=== PATIENT | male | born 1935 | race Caucasian/White ===

== ENCOUNTER → 2017-06-26 | Outpatient (CLI) | payer MEDICARE, OTHER ==
[~2017-06-26] MED LIST: B COTAB3 PO; CARB25TA PO; CARV6.25 PO; COUM5TAB PO; FISH1000 PO; NEUR600T PO; OXYC15TA PO; OXYC15TA55 PO; TAB-TAB PO; VITA20002 PO; VITA250L OR; VITA500T10 PO; WARF5TAB PO
[2017-06-26 10:49] LABS: HEMATOCRIT 41.4 % (39.0-51.0); MEAN CELL VOLUME 99.3 FL (80.0-100.0); MEAN CORPUSCULAR HEMOGLOBIN 32.9 PG (27.0-34.0); MEAN CORPUSCULAR HGB CONC 33.2 % (32.0-36.0); PLATELET COUNT 162 TH/MM3 (150-450); RED BLOOD COUNT 4.17 MIL/MM3 (4.50-5.90); RED CELL DISTRIBUTION WIDTH 13.6 % (11.6-17.2); REVIEW FLAG FINAL; WHITE BLOOD COUNT 6.4 TH/MM3 (4.0-11.0)
[2017-06-26 10:58] LABS: APTT (PATIENT) 27.7 SEC (24.3-30.1); INTERNATIONAL NORMALIZED RATIO 1.2 RATIO; PROTHROMBIN TIME - PATIENT 13.8 SEC (9.8-11.6)
[2017-06-26 11:13] LABS: BICARBONATE 32.8 MEQ/L (21.0-32.0)
--- NOTE | 2017-06-27 15:55 | EKG ---
Date Performed: 06/26/2017 Time Performed: 10:10:10 PTAGE: 82 years EKG: Atrial fibrillation with rapid ventricular response Demand pacing. Pacemaker rhythm - no fu rther analysis Abnormal ECG PREVIOUS TRACING : 02/27/2016 11.45 DOCTOR: Mckenzie Ling Interpretating Date/Time 06/27/2017 15:47:46
== END ==
LOC: CLAB 09:42
PROVIDERS: ATTEND Plastic Surgery
DX: C43.39 Malignant melanoma of other parts of face (principal); I48.91 Unspecified atrial fibrillation
CPT/HCPCS: 36415; 80051; 85027; 85610; 85730; 93005

== ENCOUNTER 2017-10-18 18:40 | Inpatient (IN) | payer MEDICARE, OTHER ==
[~2017-10-18] VITALS: Ht 180.3 cm; Wt 67.2 kg
[2017-10-18 18:55] VITALS: PULSE 112; RESP 20; TEMP 98.7; O2SAT 97
[2017-10-18 19:24] VITALS: BP 138/92; PULSE 142; RESP 16; O2SAT 98
[2017-10-18] MEDS ORDERED: DILTIAZEM HCL 25 MG/5 ML VIAL IV ONE ×2 (19:30→21:45)
--- NOTE | 2017-10-18 19:37 | PD ---
HPI Chief Complaint: Cardiac Complaint Time Seen by Provider: 19:13 Travel History International Travel<30 days: No Contact w/Intl Traveler<30days: No Traveled to known affect area: No History of Present Illness HPI 82-year-old male was referred to the emergency room department for tachycardia. Patient has history of atrial fibrillation acute bradycardia syndrome. Patient has been seen by Dr. Gonzales. Patient has a defibrillator in place. Patient is on Coumadin. Patient has routine wellness nurse visit today. Patient was found to have tachycardia. Patient was able to ED for evaluation. Patient denies any chest pain or shortness of breath. Patient denies any feeling of palpitation. Patient denies any headache. Patient denies abdominal pain. Patient denies nausea vomiting diarrhea. Patient denies any fever chills. Patient is on carvedilol 12.5 mg daily. Patient's on digoxin 0.125 mg daily. PFSH Past Medical History Hx Anticoagulant Therapy: Yes Atrial Fibrillation: Yes Heart Rhythm Problems: Yes (AFIB TACHY RUBÉN SYNDROME) Cancer: No Cardiovascular Problems: Yes High Cholesterol: Yes Coronary Artery Disease: Yes Diabetes: No Diminished Hearing: No Endocrine: No Genitourinary: No Hepatitis: No Hiatal Hernia: No Hypertension: Yes Inguinal Hernia: Yes Implanted Vascular Access Dvce: Yes Medical other: Yes (GERD) Musculoskeletal: Yes (SPINAL STENOSIS) Neurologic: Yes (RESTLESS LEG SYNDROME PERIPHERAL NEUROPATHY) Reproductive: No Respiratory: Yes (SLEEP APNEA, USES CPAP) Immunizations Current: Yes Sleep Apnea: Yes (USES CPAP) Thyroid Disease: No Tetanus Vaccination: < 5 Years PNEUMOCCOCAL Vaccine (Year): 2009 Past Surgical History Abdominal Surgery: Yes (HERNIA REPAIRS X 4) AICD: Yes Cardiac Surgery: Yes (BIOTRONIK DEFIB 03/2008, [place]) Oral Surgery: Yes (TONSILLECTOMY) Pacemaker: Yes Tonsillectomy: Yes Other Surgery: Yes Social History Alcohol Use: No Tobacco Use: No Substance Use: No Allergies-Medications (Allergen,Severity, Reaction): Coded Allergies: No Known Allergies (Verified Adverse Reaction, Unknown, 10/18/17) Reported Meds & Prescriptions Reported Meds & Active Scripts Active Reported Warfarin Sodium 5 mg (Warfarin Sodium) 5 Mg Tab 5.5 Mg PO MON,WED,FRI Vitamin D-3 (Cholecalciferol) 2 000 Tab 2,000 Unit PO DAILY Vitamin B 12 (Cyanocobalamin) 250 Mcg Laly 2,500 Mcg OR DAILY B Complex (Vitamin B Complex) Tab 1 Cap PO DAILY Fish Oil 1,000 Mg Cap 1,400 Mg PO DAILY Oxycodone (Oxycodone HCl) 15 Mg Tab 15 Mg PO PRN FOR BREAK THROUGH PAIN OxyCONTIN ER (Oxycodone HCl) 15 Mg Tab 20 Mg PO BID Neurontin (Gabapentin) 600 Mg Tab 600 Mg PO TID Coreg 6.25 mg (Carvedilol) 6.25 Mg Tab 25 Mg PO BID Coumadin 5 mg (Warfarin Sodium) 5 Mg Tab 5 Mg PO MON,MON, SAT Vitamin C (Ascorbic Acid) 500 Mg Tab 1,000 Mg PO DAILY Multivitamin (Multivitamins) 1 Tab Tab 1 Tab PO DAILY Sinemet 25/100 (Carbidopa/Levodopa) 25 Mg/100 Mg Tab 2 Tab PO TID Review of Systems General / Constitutional: No: Fever Eyes: No: Visual changes HENT: No: Headaches Cardiovascular: Positive: Palpitations, No: Chest Pain or Discomfort Respiratory: No: Shortness of Breath Gastrointestinal: No: Abdominal Pain Genitourinary: No: Dysuria Musculoskeletal: No: Pain Skin: No Rash Neurologic: No: Weakness Psychiatric: No: Depression Endocrine: No: Polydipsia Hematologic/Lymphatic: No: Easy Bruising Physical Exam Narrative GENERAL: Well-nourished, well-developed patient. SKIN: Focused skin assessment warm/dry. HEAD: Normocephalic. EYES: No scleral icterus. No injection or drainage. NECK: Supple, trachea midline. No JVD or lymphadenopathy. CARDIOVASCULAR: Irregularly irregular rate and rhythm without murmurs, gallops, or rubs. RESPIRATORY: Breath sounds equal bilaterally. No accessory muscle use. GASTROINTESTINAL: Abdomen soft, non-tender, nondistended. MUSCULOSKELETAL: No cyanosis, or edema. BACK: Nontender without obvious deformity. No CVA tenderness. Neurologic exam normal. Data Data Last Documented VS Vital Signs Date Time Temp Pulse Resp B/P (MAP) Pulse Ox O2 Delivery O2 Flow Rate FiO2 10/18/17 19:24 142 16 138/92 (107) 98 Room Air 10/18/17 18:55 98.7 Orders Orders Electrocardiogram (10/18/17 19:22) Complete Blood Count With Diff (10/18/17 19:22) Comprehensive Metabolic Panel (10/18/17 19:22) Creatine Kinase (Cpk) (10/18/17 19:22) Troponin I (10/18/17 19:22) B-Type Natriuretic Peptide (10/18/17 19:22) Prothrombin Time / Inr (Pt) (10/18/17 19:22) Act Partial Throm Time (Ptt) (10/18/17 19:22) Thyroid Stimulating Hormone (10/18/17 19:22) Chest, Single Ap (10/18/17 19:22) Iv Access Insert/Monitor (10/18/17 19:22) Ecg Monitoring (10/18/17 19:22) Oximetry (10/18/17 19:22) Diltiazem Inj (Cardizem Inj) (10/18/17 19:30) Digoxin (10/18/17 19:30) Sodium Chlor 0.9% 1000 Ml Inj (Ns 1000 M (10/18/17 19:45) Diltiazem Inj (Cardizem Inj) (10/18/17 21:45) Vital Signs (Adult) Q15MX4,Q4H (10/18/17 21:58) Hourly Shift Manager / Telemetry SHARA.Q8H (10/18/17 21:58) Cardiac Rhythm SHARA.Q8H (10/18/17 21:58) Notify Dr: Other (10/18/17 21:58) Diltiazem Inj (Cardizem Inj) (10/18/17 22:00) Labs Laboratory Tests Test 10/18/17 19:30 White Blood Count 8.3 TH/MM3 Red Blood Count 3.84 MIL/MM3 Hemoglobin 12.8 GM/DL Hematocrit 38.7 % Mean Corpuscular Volume 100.9 FL Mean Corpuscular Hemoglobin 33.3 PG Mean Corpuscular Hemoglobin Concent 33.0 % Red Cell Distribution Width 15.2 % Platelet Count 185 TH/MM3 Mean Platelet Volume 7.5 FL Neutrophils (%) (Auto) 88.8 % Lymphocytes (%) (Auto) 8.2 % Monocytes (%) (Auto) 2.8 % Eosinophils (%) (Auto) 0.1 % Basophils (%) (Auto) 0.1 % Neutrophils # (Auto) 7.4 TH/MM3 Lymphocytes # (Auto) 0.7 TH/MM3 Monocytes # (Auto) 0.2 TH/MM3 Eosinophils # (Auto) 0.0 TH/MM3 Basophils # (Auto) 0.0 TH/MM3 CBC Comment DIFF FINAL Differential Comment Prothrombin Time 58.9 SEC Prothromb Time International Ratio 5.0 RATIO Activated Partial Thromboplast Time 35.9 SEC Blood Urea Nitrogen 23 MG/DL Creatinine 0.86 MG/DL Random Glucose 123 MG/DL Total Protein 7.0 GM/DL Albumin 3.3 GM/DL Calcium Level 8.9 MG/DL Alkaline Phosphatase 60 U/L Aspartate Amino Transf (AST/SGOT) 25 U/L Alanine Aminotransferase (ALT/SGPT) 33 U/L Total Bilirubin 0.2 MG/DL Sodium Level 142 MEQ/L Potassium Level 4.4 MEQ/L Chloride Level 104 MEQ/L Carbon Dioxide Level 30.9 MEQ/L Anion Gap 7 MEQ/L Estimat Glomerular Filtration Rate 86 ML/MIN Total Creatine Kinase 71 U/L Troponin I 0.06 NG/ML B-Type Natriuretic Peptide 155 PG/ML Thyroid Stimulating Hormone 3rd Gen 0.443 uIU/ML Digoxin Level 0.9 NG/ML [facility] Medical Decision Making Medical Screen Exam Complete: Yes Emergency Medical Condition: Yes Interpretation(s) 21:31 PM. Last Impressions Chest X-Ray 10/18/171921 Signed Impressions: Service Date/Time: Wednesday, October 18, 2017 19:31 - CONCLUSION: Plain film findings characteristic of severe bilateral fibrosis, right worse than left. Gabe Harris MD 21:31 PM. CBC WBC 8.3. Hemoglobin 12.8 hematocrit 30.7. MCV 100.9. BUN 23. Troponin 0.06. INR 5.0. Dig level 0.9. Differential Diagnosis Differential diagnosis including atrial fibrillation with RVR. Narrative Course 82-year-old male with palpitation. History of atrial fibrillation. On carvedilol and digoxin. Patient is on Coumadin. EKG shows atrial fibrillation with RVR rate 140. Cardizem 10 mg IV given. Repeated Cardizem 10 mg IV. Patient still has A. fib with RVR after 20 mg IV Cardizem. Cardizem drip started. Patient will be admitted to medical service with cardiology consultation. Royce Rehman MD Oct 18, 2017 19:36
[2017-10-18] MEDS: SODIUM CHLOR 0.9% 1000 ML INJ 1,000 ML IV SCH ×2 (19:41→21:41)
[2017-10-18 19:43] LABS: AUTOMATED NEUTROPHIL # 7.4 TH/MM3 (1.8-7.7); BASOPHIL % 0.1 % (0.0-2.0); EOSINOPHIL % 0.1 % (0.0-4.0); HEMATOCRIT 38.7 % (39.0-51.0); HEMO FLAGS DIFF FINAL; LYMPH % 8.2 % (9.0-44.0); LYMPHOCYTE # 0.7 TH/MM3 (1.0-4.8); MEAN CELL VOLUME 100.9 FL (80.0-100.0); MEAN CORPUSCULAR HEMOGLOBIN 33.3 PG (27.0-34.0); MONO % 2.8 % (0.0-8.0); NEUT % 88.8 % (16.0-70.0); PLATELET COUNT 185 TH/MM3 (150-450); RED BLOOD COUNT 3.84 MIL/MM3 (4.50-5.90); RED CELL DISTRIBUTION WIDTH 15.2 % (11.6-17.2); WHITE BLOOD COUNT 8.3 TH/MM3 (4.0-11.0)
--- NOTE | 2017-10-18 19:48 | RADRPT ---
EXAM DATE/TIME: 10/18/2017 19:31 [facility] COMPARISON: No previous studies available for comparison. INDICATIONS : Elevated heart rate. MEDICAL HISTORY : Melanoma. Chronic low back pain. SURGICAL HISTORY : Pacemaker. Melanoma removal, head. ENCOUNTER: Initial ACUITY: 1 day PAIN SCORE: 0/10 LOCATION: Chest. FINDINGS: A single view of the chest demonstrates a chronic appearing fibrotic changes throughout both hemithor aces, right worse than left there is superimposed confluent infiltrate. Left subclavian bipolar pacer is radiographically intact. Osseous structures are intact. CONCLUSION: Plain film findings characteristic of severe bilateral fibrosis, right worse than left. Gabe Harris MD on October 18, 2017 at 19:45 Board Certified Radiologist. This report was verified electronically.
[2017-10-18 19:59] LABS: ALT (GPT) 33 U/L (12-78); APTT (PATIENT) 35.9 SEC (24.3-30.1); PROTHROMBIN TIME - PATIENT 58.9 SEC (9.8-11.6)
[2017-10-18 20:10] LABS: ALKALINE PHOSPHATASE 60 U/L (45-117); ANION GAP 7 MEQ/L (5-15); AST (GOT) 25 U/L (15-37); BICARBONATE 30.9 MEQ/L (21.0-32.0); BLOOD UREA NITROGEN 23 MG/DL (7-18); CHLORIDE 104 MEQ/L (98-107); CREATINE KINASE 71 U/L (39-308); GLOMERULAR FILTRATION RATE 86 ML/MIN (>89); POTASSIUM 4.4 MEQ/L (3.5-5.1); SODIUM (NA) 142 MEQ/L (136-145); TOTAL BILIRUBIN ADULT 0.2 MG/DL (0.2-1.0)
[2017-10-18] MEDS ORDERED: NALOXONE HCL 0.4 MG/ML AMP IV PUSH PRN (22:15)
[2017-10-18] MEDS ORDERED: LACTULOSE SYRUP 20 GM/30 ML CUP PO PRN (22:15)
[2017-10-18] MEDS ORDERED: NON-FORMULARY DRUG (Oxycodone 15 MG) PO SCH (22:15)
[2017-10-18] MEDS ORDERED: SODIUM CHLORIDE 0.9% FLUSH 10 ML FLUSH IV FLUSH PRN (22:15)
[2017-10-18] MEDS ORDERED: ACETAMINOPHEN 325 MG TAB PO PRN (22:15)
[2017-10-18] MEDS ORDERED: BISACODYL 10 MG SUPP RECTAL PRN (22:15)
[2017-10-18] MEDS ORDERED: MAGNESIUM HYDROXIDE SUSP 30 ML CUP PO PRN (22:15)
[2017-10-18] MEDS ORDERED: ONDANSETRON HCL 4 MG/2 ML VIAL IVP PRN (22:15)
[2017-10-18] MEDS ORDERED: ZOLPIDEM TARTRATE 5 MG TAB PO PRN (22:15)
[2017-10-18] MEDS ORDERED: SENNOSIDES 8.6 MG TAB PO PRN (22:15)
[2017-10-18 23:00] VITALS: PULSE 140
[2017-10-19] VITALS (37 sets, daily range): BP systolic 101–138; BP diastolic 58–98; PULSE 69–140; RESP 9–25; TEMP 97.8–98.7; O2SAT 93–100
[2017-10-19] MEDS: DILTIAZEM INJ 125 MG in SODIUM CHLORIDE 0.9% INJ 100 ML IV PRN ×2 (00:35→08:11)
[2017-10-19] MEDS ORDERED: CHLORHEXIDINE GLUCONATE 2 % 1 PACK (2 CLOTHS)(extra cloths) TOPICAL PRN (02:00)
[2017-10-19] MEDS: GABAPENTIN 300 MG CAP PO SCH ×4 (03:07→18:10)
[2017-10-19] MEDS: CARBIDOPA/LEVODOPA 25 MG/100 MG TAB PO SCH ×4 (03:07→18:10)
[2017-10-19] MEDS: oxyCODONE HCL 20 MG CONTROLLED RELEASE TAB PO SCH ×3 (03:40→20:29)
[2017-10-19] MEDS: CHLORHEXIDINE GLUCONATE 2 % 1 PACK (2 CLOTHS)(taper/protocol) TOPICAL SCH (04:00)
[2017-10-19 06:52] LABS: AUTOMATED NEUTROPHIL # 7.4 TH/MM3 (1.8-7.7); BASOPHIL % 0.1 % (0.0-2.0); EOSINOPHIL # 0.1 TH/MM3 (0-0.4); EOSINOPHIL % 1.5 % (0.0-4.0); HEMO FLAGS DIFF FINAL; LYMPH % 14.7 % (9.0-44.0); LYMPHOCYTE # 1.4 TH/MM3 (1.0-4.8); MEAN CELL VOLUME 100.7 FL (80.0-100.0); MEAN CORPUSCULAR HEMOGLOBIN 34.3 PG (27.0-34.0); MEAN CORPUSCULAR HGB CONC 34.1 % (32.0-36.0); MONO % 3.7 % (0.0-8.0); PLATELET COUNT 175 TH/MM3 (150-450); RED BLOOD COUNT 3.88 MIL/MM3 (4.50-5.90); RED CELL DISTRIBUTION WIDTH 15.3 % (11.6-17.2); WHITE BLOOD COUNT 9.3 TH/MM3 (4.0-11.0)
[2017-10-19 07:13] LABS: ALT (GPT) 8 U/L (12-78); ANION GAP 8 MEQ/L (5-15); AST (GOT) 22 U/L (15-37); BICARBONATE 31.3 MEQ/L (21.0-32.0); BLOOD UREA NITROGEN 20 MG/DL (7-18); CHLORIDE 103 MEQ/L (98-107); GLOMERULAR FILTRATION RATE 96 ML/MIN (>89); POTASSIUM 3.5 MEQ/L (3.5-5.1); SODIUM (NA) 142 MEQ/L (136-145)
[2017-10-19 07:19] LABS: ALKALINE PHOSPHATASE 55 U/L (45-117); TOTAL BILIRUBIN ADULT 0.7 MG/DL (0.2-1.0)
[2017-10-19] MEDS: ASCORBIC ACID 500 MG TAB PO SCH (07:32)
[2017-10-19] MEDS: CYANOCOBALAMIN 1,000 MCG TAB PO SCH (07:32)
[2017-10-19] MEDS: CARVEDILOL 12.5 MG TAB PO SCH ×2 (07:33→20:29)
[2017-10-19] MEDS: DOCUSATE SODIUM 50 MG/SENNA 8.6 MG TAB PO SCH ×2 (07:33→20:29)
[2017-10-19] MEDS: MULTIVITAMIN TAB PO SCH (07:33)
[2017-10-19] MEDS: CHOLECALCIFEROL (VIT D3) 1000 UNIT TAB PO SCH (07:33)
[2017-10-19] MEDS: SODIUM CHLORIDE 0.9% FLUSH 10 ML FLUSH IV FLUSH SCH ×2 (08:09→20:28)
[2017-10-19] MEDS: SODIUM CHLOR 0.9% 1000 ML INJ 1,000 ML IV SCH ×2 (08:11→18:11)
[2017-10-19] MEDS ORDERED: FATTY ACIDS PO SCH (09:00)
[2017-10-19] MEDS ORDERED: FOLIC ACID PO SCH (09:00)
[2017-10-19] MEDS ORDERED: B COMPLEX PO SCH (09:00)
[2017-10-19] MEDS ORDERED: OMEGA PO SCH (09:00)
--- NOTE | 2017-10-19 09:36 | MB ---
cc: LITA OLMEDO MD DATE OF CONSULTATION 10/19/2017 REASON FOR CONSULTATION Atrial fibrillation with rapid ventricular rate. HISTORY OF PRESENT ILLNESS Mr. Weir is an 82-year-old man who does have a history of atrial fibrillation and is status post multiple ablations. He has a history of cardiomyopathy which has subsequently resolved and Biotronik ICD. The patient has remained asymptomatic. He reports that home health nurse was there and did his initial vital signs which was acceptable. Prior to her departure she checked begin and found that his heart rate was quite elevated. He subsequently went to the emergency room. He remains asymptomatic and in A-fib with RVR at this time. PAST MEDICAL HISTORY Significant for - 1. Resolved nonischemic cardiomyopathy with normal LV function. 2. He did have a cardiac catheterization in 2007 that showed mild CAD. 3. CHF. 4. Sleep apnea. 5. Hypothyroidism. 6. V-tach. 7. Parkinson's. 8. Peripheral neuropathy. 9. Spinal stenosis. OUTPATIENT MEDICATIONS 1. Lanoxin and 0.125 mg a day. 2. Carvedilol 12.5 mg a day. 3. Carbidopa-levodopa. 4. Fish oil. 5. Fluconazole. 6. Gabapentin. 7. Levothyroxine. 8. Oxycodone. 9. Pantoprazole. 10. Restasis. 11. Vitamins. 12. Voltaren. 13. Coumadin. ALLERGIES No known drug allergies. SOCIAL HISTORY: The patient is a former tobacco user. FAMILY HISTORY Positive for CAD. REVIEW OF SYSTEMS Except as mentioned in the HPI, all 12 systems are negative. PHYSICAL EXAMINATION VITAL SIGNS: On physical examination the heart rate is 140. Vital signs are otherwise stable. IN GENERAL: He is a well-appearing elderly man who is in no apparent distress. NECK: Free from JVD. LUNGS: Clear to auscultation. CARDIOVASCULAR EXAMINATION: He has a normal S1 and S2. I did not appreciate any murmurs, rubs or gallops. He is tachycardiac. ABDOMEN: Soft. EXTREMITIES: The extremities have a trace amount of edema. ECHOCARDIOGRAM From July 19, 2017. Normal LV function and mild valvular abnormalities. IMPRESSIONS Atrial fibrillation - The patient does have a history of A-fib and is now in RVR. He was started on Cardizem in the emergency room with little to no improvement in the heart rate. I do agree with increasing his carvedilol to 25 mg. I asked the nurse to give that STAT this morning. We will consider adding amiodarone if this does not assist with his heart rate control. He should remain on his Coumadin. Indeterminate troponin - This is felt secondary to his A-fib/RVR. Trenton Eduardo/DREW /8:52 AM /9:10 AM
--- NOTE | 2017-10-19 11:36 | HHI.HP ---
History of Present Illness Service Family medicine Primary Care Physician Navarro Jewell, DO Admission Diagnosis A. fib with RVR Diagnoses: (1) GERD (gastroesophageal reflux disease) (2) HTN (hypertension) (3) Hyperlipidemia (4) Afib History of Present Illness Patient is a 82-year-old male was referred to the emergency room department for tachycardia found by home health nurse. Mr. Weir has a history of atrial fibrillation and is status post multiple ablations. He has a history of cardiomyopathy which has subsequently resolved and Biotronik ICD. Has past medical history of HTN, sleep apnea, parkinsons, GERD, and HLD Review of Systems Constitutional: DENIES: Fatigue, Fever, Chills, Dizziness, Change in appetite Respiratory: DENIES: Wheezing, Sputum production, Shortness of breath Cardiovascular: COMPLAINS OF: Palpitations, DENIES: Chest pain, Syncope, Lower Extremity Edema Gastrointestinal: DENIES: Constipation, Diarrhea, Nausea, Vomiting Psychiatric: DENIES: Anxiety, Depression Past Family Social History Allergies: Coded Allergies: No Known Allergies (Verified Allergy, Unknown, 10/18/17) Past Medical History PAST MEDICAL HISTORY Significant for - 1. Resolved nonischemic cardiomyopathy with normal LV function. 2. He did have a cardiac catheterization in 2007 that showed mild CAD. 3. CHF. 4. Sleep apnea. 5. Hypothyroidism. 6. V-tach. 7. Parkinson's. 8. Peripheral neuropathy. 9. Spinal stenosis. Past Surgical History Hernia repair X 4 AICD Tonsillectomy Active Ordered Medications Current Medications Medications (Trade) Dose Ordered Sig/Mendoza Route Start Time Stop Time Status Last Admin Diltiazem HCl 125 mg/Sodium Chloride 125 ml @ 5 mls/hr TITRATE PRN IV 10/18/17 22:00 10/19/17 08:11 Sodium Chloride 1,000 ml @ 100 mls/hr Q10H IV 10/18/17 22:11 10/19/17 08:11 (NS Flush) 2 ml UNSCH PRN IV FLUSH 10/18/17 22:15 (NS Flush) 2 ml BID IV FLUSH 10/19/17 09:00 (Tylenol) 650 mg Q4H PRN PO 10/18/17 22:15 (Zofran Inj) 4 mg Q6H PRN IVP 10/18/17 22:15 (Ambien) 5 mg HS PRN PO 10/18/17 22:15 (Narcan Inj) 0.4 mg UNSCH PRN IV PUSH 10/18/17 22:15 (Bridget-Colace) 1 tab BID PO 10/19/17 09:00 10/19/17 07:33 (Milk Of Magnesia Liq) 30 ml Q12H PRN PO 10/18/17 22:15 (Senokot) 17.2 mg Q12H PRN PO 10/18/17 22:15 (Dulcolax Supp) 10 mg DAILY PRN RECTAL 10/18/17 22:15 (Lactulose Liq) 30 ml DAILY PRN PO 10/18/17 22:15 (Vitamin C) 1,000 mg DAILY PO 10/19/17 09:00 10/19/17 07:32 (Sinemet 25-100 Mg) 2 tab TID PO 10/19/17 02:49 10/19/17 07:33 (Coreg) 25 mg BID PO 10/19/17 09:00 10/19/17 07:33 (Theragran) 1 tab DAILY PO 10/19/17 09:00 10/19/17 07:33 (Vitamin D3) 2,000 units DAILY PO 10/19/17 09:00 10/19/17 07:33 (Vitamin B12) 2,500 mcg DAILY PO 10/19/17 09:00 10/19/17 07:32 (Neurontin) 600 mg TID PO 10/19/17 02:49 10/19/17 08:09 (OxyCONTIN CR) 20 mg BID PO 10/19/17 03:00 10/19/17 07:33 Miscellaneous Information Patient in critical care unit? Ass... [id number] .XX 10/19/17 02:00 10/19/17 02:00 (Chlorhexidine 2% Cloth) 3 pack DAILY@04 TOPICAL 10/19/17 04:00 10/23/17 04:01 10/19/17 04:00 (Chlorhexidine 2% Cloth) 3 pack UNSCH PRN TOPICAL 10/19/17 02:00 10/24/17 01:52 Social History Quit smoking 1972 Infrequent ETOH use Lives alone- in January Physical Exam Vital Signs Vital Signs Date Time Temp Pulse Resp B/P (MAP) Pulse Ox O2 Delivery O2 Flow Rate FiO2 10/19/17 08:11 140 10/19/17 07:00 97.8 128 18 101/63 (76) 94 10/19/17 07:00 128 10/19/17 06:00 122 10/19/17 06:00 122 110/79 10/19/17 04:00 100 10/19/17 03:00 98.7 125 13 130/88 (102) 95 10/19/17 02:00 120 10/19/17 02:00 122 140/86 10/19/17 01:58 97.9 120 20 137/98 (111) 94 10/19/17 00:50 140 16 125/93 (104) 100 Room Air 10/19/17 00:35 144 116/72 10/18/17 23:00 140 10/18/17 22:33 10/18/17 19:24 142 16 138/92 (107) 98 Room Air 10/18/17 18:55 98.7 112 20 97 Physical Exam GENERAL: Well-nourished, well-developed patient. SKIN: Focused skin assessment warm/dry. HEAD: Normocephalic. EYES: No scleral icterus. No injection or drainage. NECK: Supple, trachea midline. No JVD or lymphadenopathy. CARDIOVASCULAR: Irregularly irregular rate and rhythm without murmurs, gallops, or rubs. RESPIRATORY: Breath sounds equal bilaterally. No accessory muscle use. GASTROINTESTINAL: Abdomen soft, non-tender, nondistended. MUSCULOSKELETAL: No cyanosis, or edema. BACK: Nontender without obvious deformity. No CVA tenderness. Neurologic exam normal. Laboratory Laboratory Tests Test 10/18/17 19:30 10/19/17 02:00 10/19/17 05:12 White Blood Count 8.3 9.3 Red Blood Count 3.84 3.88 Hemoglobin 12.8 13.3 Hematocrit 38.7 39.0 Mean Corpuscular Volume 100.9 100.7 Mean Corpuscular Hemoglobin 33.3 34.3 Mean Corpuscular Hemoglobin Concent 33.0 34.1 Red Cell Distribution Width 15.2 15.3 Platelet Count 185 175 Mean Platelet Volume 7.5 7.9 Neutrophils (%) (Auto) 88.8 80.0 Lymphocytes (%) (Auto) 8.2 14.7 Monocytes (%) (Auto) 2.8 3.7 Eosinophils (%) (Auto) 0.1 1.5 Basophils (%) (Auto) 0.1 0.1 Neutrophils # (Auto) 7.4 7.4 Lymphocytes # (Auto) 0.7 1.4 Monocytes # (Auto) 0.2 0.3 Eosinophils # (Auto) 0.0 0.1 Basophils # (Auto) 0.0 0.0 CBC Comment DIFF FINAL DIFF FINAL Differential Comment Prothrombin Time 58.9 Prothromb Time International Ratio 5.0 Activated Partial Thromboplast Time 35.9 Blood Urea Nitrogen 23 20 Creatinine 0.86 0.78 Random Glucose 123 86 Total Protein 7.0 6.7 Albumin 3.3 3.2 Calcium Level 8.9 8.8 Alkaline Phosphatase 60 55 Aspartate Amino Transf (AST/SGOT) 25 22 Alanine Aminotransferase (ALT/SGPT) 33 8 Total Bilirubin 0.2 0.7 Sodium Level 142 142 Potassium Level 4.4 3.5 Chloride Level 104 103 Carbon Dioxide Level 30.9 31.3 Anion Gap 7 8 Estimat Glomerular Filtration Rate 86 96 Total Creatine Kinase 71 Troponin I 0.06 B-Type Natriuretic Peptide 155 Thyroid Stimulating Hormone 3rd Gen 0.443 Digoxin Level 0.9 Nasal Screen MRSA (PCR) MRSA NOT DETECTED Result Diagram: 10/19/1751110/19/17511 Imaging Last 72 hours Impressions Chest X-Ray 10/18/171921 Signed Impressions: Service Date/Time: Monday, October 18, 2017 19:31 - CONCLUSION: Plain film findings characteristic of severe bilateral fibrosis, right worse than left. MD Kaatlina Jackson VTE Risk Assessment Javedrini VTE Risk Assessment: Mod/High Risk (score >= 2) Caprini Risk Assessment Model Point Value = 1 Point Value = 2 Point Value = 3 Point Value = 5 Age 41-60 Minor surgery BMI > 25 kg/m2 Swollen legs Varicose veins or History of unexplained or recurrent spontaneous Oral contraceptives or hormone replacement Sepsis (< 1 month) Serious lung disease, including pneumonia (< 1 month) Abnormal pulmonary function Acute myocardial infarction Congestive heart failure (< 1 month) History of inflammatory bowel disease Medical patient at bed rest Age 61-74 Arthroscopic surgery Major open surgery (> 45 min) Laparoscopic surgery (> 45 min) Malignancy Confined to bed (> 72 hours) Immobilizing plaster cast Central venous access Age >= 75 History of VTE Family history of VTE Factor V Leiden Prothrombin [id number] Lupus anticoagulant Anticardiolipin antibodies Elevated serum homocysteine Heparin-induced thrombocytopenia Other congenital or acquired thrombophilia Stroke (< 1 month) Elective arthroplasty Hip, pelvis, or leg fracture Acute spinal cord injury (< 1 month) Prophylaxis Regimen Total Risk Factor Score Risk Level Prophylaxis Regimen 0-1 Low Early ambulation 2 Moderate Order ONE of the following: *Sequential Compression Device (SCD) *Heparin 5000 units SQ BID 3-4 Higher Order ONE of the following medications: *Heparin 5000 units SQ TID *Enoxaparin/Lovenox 40 mg SQ daily (WT < 150 kg, CrCl > 30 mL/min) *Enoxaparin/Lovenox 30 mg SQ daily (WT < 150 kg, CrCl > 10-29 mL/min) *Enoxaparin/Lovenox 30 mg SQ BID (WT < 150 kg, CrCl > 30 mL/min) AND/OR *Sequential Compression Device (SCD) 5 or more Highest Order ONE of the following medications: *Heparin 5000 units SQ TID (Preferred with Epidurals) *Enoxaparin/Lovenox 40 mg SQ daily (WT < 150 kg, CrCl > 30 mL/min) *Enoxaparin/Lovenox 30 mg SQ daily (WT < 150 kg, CrCl > 10-29 mL/min) *Enoxaparin/Lovenox 30 mg SQ BID (WT < 150 kg, CrCl > 30 mL/min) AND *Sequential Compression Device (SCD) Assessment and Plan Problem List: (1) Atrial fibrillation with RVR ICD Codes: I48.91 - Unspecified atrial fibrillation (2) Hyperlipidemia ICD Codes: E78.5 - Hyperlipidemia, unspecified (3) GERD (gastroesophageal reflux disease) ICD Codes: K21.9 - Gastro-esophageal reflux disease without esophagitis (4) HTN (hypertension) ICD Codes: I10 - Essential (primary) hypertension Assessment and Plan 10/19/17 AFIB RVR: Cardiology consulted. On diltiazem drip. HR in the 120- 130's patient is resting comfortable. On warfarin but is on hold with INR of 5, Will order INR for AM. Urinary retention: Patient unable to void. Bladder is distended. Order for leigh placement and flomax added. Parkinson; Home medication resumed GERD: Asymptomatic continue PPI I and the MEDICAL BILLER CODER have both examined this patient and reviewed this note and I agree with these findings and plan of care. Tiarra Yan. MEDICAL BILLER CODER Oct 19, 2017 11:36
--- NOTE | 2017-10-19 16:28 | EKG ---
Date Performed: 10/18/2017 Time Performed: 18:56:07 PTAGE: 82 years EKG: SINUS TACHYCARDIA WITH SHORT ID INTERVAL WITH OCCASIONAL VENTRICULAR PREMATURE COMPLEXES WI TH FREQUENT SUPRAVENTRICULAR PREMATURE COMPLEXES RIGHT BUNDLE BRANCH BLOCK LEFT ANTERIOR FASCICULAR B LOCK POSSIBLE ANTERIOR MYOCARDIAL INFARCTION When compared to previous tracing, patient continues wit h atrial Fibrillation. Right bundle branch block continues. ABNORMAL ECG PREVIOUS TRACING : 06/26/2017 10.10 DOCTOR: Ashia Soto Interpretating Date/Time 10/19/2017 16:28:40
[2017-10-20] VITALS (21 sets, daily range): BP systolic 96–154; BP diastolic 57–104; PULSE 69–127; RESP 11–34; TEMP 97.3–98.3; O2SAT 92–99
[2017-10-20] MEDS ORDERED: DILTIAZEM HCL 30 MG TAB PO ONE (03:55)
[2017-10-20] MEDS: CHLORHEXIDINE GLUCONATE 2 % 1 PACK (2 CLOTHS)(taper/protocol) TOPICAL SCH (04:00)
[2017-10-20 06:03] LABS: AUTOMATED NEUTROPHIL # 6.3 TH/MM3 (1.8-7.7); BASOPHIL % 0.4 % (0.0-2.0); EOSINOPHIL # 0.2 TH/MM3 (0-0.4); EOSINOPHIL % 2.6 % (0.0-4.0); HEMATOCRIT 39.2 % (39.0-51.0); HEMO FLAGS DIFF FINAL; LYMPH % 11.1 % (9.0-44.0); LYMPHOCYTE # 0.9 TH/MM3 (1.0-4.8); MEAN CELL VOLUME 99.8 FL (80.0-100.0); MEAN CORPUSCULAR HEMOGLOBIN 33.3 PG (27.0-34.0); MEAN CORPUSCULAR HGB CONC 33.4 % (32.0-36.0); MONO % 4.4 % (0.0-8.0); NEUT % 81.5 % (16.0-70.0); PLATELET COUNT 159 TH/MM3 (150-450); RED BLOOD COUNT 3.93 MIL/MM3 (4.50-5.90); RED CELL DISTRIBUTION WIDTH 14.7 % (11.6-17.2); WHITE BLOOD COUNT 7.7 TH/MM3 (4.0-11.0)
[2017-10-20 06:06] LABS: INTERNATIONAL NORMALIZED RATIO 2.1 RATIO; PROTHROMBIN TIME - PATIENT 21.5 SEC (9.8-11.6)
[2017-10-20 06:17] LABS: BICARBONATE 30.8 MEQ/L (21.0-32.0); POTASSIUM 3.8 MEQ/L (3.5-5.1)
--- NOTE | 2017-10-20 08:23 | HHI.PR ---
Subjective Remarks Resting comfortably denies any SOB or CP. Heart rate elevated last night Objective Vital Signs Date Time Temp Pulse Resp B/P (MAP) Pulse Ox O2 Delivery O2 Flow Rate FiO2 10/20/17 07:00 98.3 117 14 114/57 (76) 99 10/20/17 06:00 96 10/20/17 04:00 125 10/20/17 03:00 98.2 123 24 154/104 (121) 93 10/20/17 02:00 116 10/20/17 00:00 114 10/19/17 23:00 98.4 116 9 138/65 (89) 95 10/19/17 22:00 119 10/19/17 20:00 102 10/19/17 19:00 98.2 71 11 114/64 (81) 94 10/19/17 18:45 77 10/19/17 18:30 81 10/19/17 18:15 94 10/19/17 18:00 70 10/19/17 18:00 70 10 114/66 (82) 94 10/19/17 17:45 72 10/19/17 17:30 69 10/19/17 17:15 69 10/19/17 17:00 80 11 119/63 (81) 94 10/19/17 17:00 80 10/19/17 16:45 77 10/19/17 16:30 75 10/19/17 16:15 76 10/19/17 16:00 70 10/19/17 16:00 70 24 117/67 (84) 96 10/19/17 15:45 91 10/19/17 15:30 116 10/19/17 15:15 120 10/19/17 15:00 92 10/19/17 15:00 92 11 114/65 (81) 93 10/19/17 14:45 100 10/19/17 14:30 69 10/19/17 14:15 69 10/19/17 14:00 69 10/19/17 14:00 69 22 118/58 (78) 95 10/19/17 13:00 69 25 101/63 (76) 94 10/19/17 13:00 69 10/19/17 12:00 69 14 104/67 (79) 97 10/19/17 12:00 69 10/19/17 11:00 69 10/19/17 10:00 69 10/19/17 09:00 69 I/O 10/19/17 10/19/17 10/19/17 10/20/17 10/20/17 10/20/17 07:00 15:00 23:00 07:00 15:00 23:00 Intake Total 740 ml 300 ml Output Total 340 ml 1300 ml 2100 ml Balance -340 ml -560 ml -1800 ml Intake Oral 740 ml 300 ml Output Urine Total 340 ml 1300 ml 2100 ml # Voids 1 # Bowel Movements 0 0 Result Diagram: 10/20/1721 10/20/17520 Imaging Current Medications Medications (Trade) Dose Ordered Sig/Mendoza Route Start Time Stop Time Status Last Admin Diltiazem HCl 125 mg/Sodium Chloride 125 ml @ 5 mls/hr TITRATE PRN IV 10/18/17 22:00 10/19/17 08:11 (NS Flush) 2 ml UNSCH PRN IV FLUSH 10/18/17 22:15 (NS Flush) 2 ml BID IV FLUSH 10/19/17 09:00 10/19/17 20:28 (Tylenol) 650 mg Q4H PRN PO 10/18/17 22:15 (Zofran Inj) 4 mg Q6H PRN IVP 10/18/17 22:15 (Ambien) 5 mg HS PRN PO 10/18/17 22:15 (Narcan Inj) 0.4 mg UNSCH PRN IV PUSH 10/18/17 22:15 (Bridget-Colace) 1 tab BID PO 10/19/17 09:00 10/19/17 20:29 (Milk Of Magnesia Liq) 30 ml Q12H PRN PO 10/18/17 22:15 (Senokot) 17.2 mg Q12H PRN PO 10/18/17 22:15 (Dulcolax Supp) 10 mg DAILY PRN RECTAL 10/18/17 22:15 (Lactulose Liq) 30 ml DAILY PRN PO 10/18/17 22:15 (Vitamin C) 1,000 mg DAILY PO 10/19/17 09:00 10/19/17 07:32 (Sinemet 25-100 Mg) 2 tab TID PO 10/19/17 02:49 10/19/17 18:10 (Coreg) 25 mg BID PO 10/19/17 09:00 10/19/17 20:29 (Theragran) 1 tab DAILY PO 10/19/17 09:00 10/19/17 07:33 (Vitamin D3) 2,000 units DAILY PO 10/19/17 09:00 10/19/17 07:33 (Vitamin B12) 2,500 mcg DAILY PO 10/19/17 09:00 10/19/17 07:32 (Neurontin) 600 mg TID PO 10/19/17 02:49 10/19/17 18:10 (OxyCONTIN CR) 20 mg BID PO 10/19/17 03:00 10/19/17 20:29 Miscellaneous Information Patient in critical care unit? Ass... Q361D .XX 10/19/17 02:00 10/19/17 02:00 (Chlorhexidine 2% Cloth) 3 pack DAILY@04 TOPICAL 10/19/17 04:00 10/23/17 04:01 10/20/17 04:00 (Chlorhexidine 2% Cloth) 3 pack UNSCH PRN TOPICAL 10/19/17 02:00 10/24/17 01:52 (Cardizem) 30 mg TID PO 10/20/17 09:00 (Flomax) 0.4 mg DAILY PO 10/20/17 09:00 Objective Remarks GENERAL: alert and cooperative SKIN: Warm and dry. HEAD: Normocephalic. EYES: No scleral icterus. No injection or drainage. NECK: Supple, trachea midline. No JVD or lymphadenopathy. CARDIOVASCULAR: Regular rate and rhythm without murmurs, gallops, or rubs. RESPIRATORY: Breath sounds equal bilaterally. No accessory muscle use. GASTROINTESTINAL: Abdomen soft, non-tender, nondistended. MUSCULOSKELETAL: No cyanosis, or edema. BACK: Nontender without obvious deformity. No CVA tenderness. Medications and IVs Current Medications Medications (Trade) Dose Ordered Sig/Mendoza Route Start Time Stop Time Status Last Admin Diltiazem HCl 125 mg/Sodium Chloride 125 ml @ 5 mls/hr TITRATE PRN IV 10/18/17 22:00 10/19/17 08:11 (NS Flush) 2 ml UNSCH PRN IV FLUSH 10/18/17 22:15 (NS Flush) 2 ml BID IV FLUSH 10/19/17 09:00 10/19/17 20:28 (Tylenol) 650 mg Q4H PRN PO 10/18/17 22:15 (Zofran Inj) 4 mg Q6H PRN IVP 10/18/17 22:15 (Ambien) 5 mg HS PRN PO 10/18/17 22:15 (Narcan Inj) 0.4 mg UNSCH PRN IV PUSH 10/18/17 22:15 (Bridget-Colace) 1 tab BID PO 10/19/17 09:00 10/19/17 20:29 (Milk Of Magnesia Liq) 30 ml Q12H PRN PO 10/18/17 22:15 (Senokot) 17.2 mg Q12H PRN PO 10/18/17 22:15 (Dulcolax Supp) 10 mg DAILY PRN RECTAL 10/18/17 22:15 (Lactulose Liq) 30 ml DAILY PRN PO 10/18/17 22:15 (Vitamin C) 1,000 mg DAILY PO 10/19/17 09:00 10/19/17 07:32 (Sinemet 25-100 Mg) 2 tab TID PO 10/19/17 02:49 10/19/17 18:10 (Coreg) 25 mg BID PO 10/19/17 09:00 10/19/17 20:29 (Theragran) 1 tab DAILY PO 10/19/17 09:00 10/19/17 07:33 (Vitamin D3) 2,000 units DAILY PO 10/19/17 09:00 10/19/17 07:33 (Vitamin B12) 2,500 mcg DAILY PO 10/19/17 09:00 10/19/17 07:32 (Neurontin) 600 mg TID PO 10/19/17 02:49 10/19/17 18:10 (OxyCONTIN CR) 20 mg BID PO 10/19/17 03:00 10/19/17 20:29 Miscellaneous Information Patient in critical care unit? Ass... Q361D .XX 10/19/17 02:00 10/19/17 02:00 (Chlorhexidine 2% Cloth) 3 pack DAILY@04 TOPICAL 10/19/17 04:00 10/23/17 04:01 10/20/17 04:00 (Chlorhexidine 2% Cloth) 3 pack UNSCH PRN TOPICAL 10/19/17 02:00 10/24/17 01:52 (Cardizem) 30 mg TID PO 10/20/17 09:00 (Flomax) 0.4 mg DAILY PO 10/20/17 09:00 Assessment and Plan Problem List: (1) Atrial fibrillation with RVR ICD Codes: I48.91 - Unspecified atrial fibrillation (2) Hyperlipidemia ICD Codes: E78.5 - Hyperlipidemia, unspecified (3) GERD (gastroesophageal reflux disease) ICD Codes: K21.9 - Gastro-esophageal reflux disease without esophagitis (4) HTN (hypertension) ICD Codes: I10 - Essential (primary) hypertension Assessment and Plan 10/19/17 AFIB RVR: Cardiology consulted. On diltiazem drip. HR in the 120- 130's patient is resting comfortable. On warfarin but is on hold with INR of 5, Will order INR for AM. Urinary retention: Patient unable to void. Bladder is distended. Order for leigh placement and flomax added. Parkinson; Home medication resumed GERD: Asymptomatic continue PPI 10/20/17 AFIB RVR: Cardiology consulted and managing. HR was well controlled during the day yesterday but last night elevated. diltiazem drip is off and oral has been started. INR 2.1 today. Warfarin resumed Urinary retention: Plan to remove in AM. flomax started. I and the FIELD SERVICE COORDINATOR have both examined this patient and reviewed this note and I agree with these findings and plan of care. Navarro Jewell DO Discussed Condition With Nursing Discharge Planning Home with [facility] Tiarra Marin Oct 20, 2017 08:23
[2017-10-20] MEDS: GABAPENTIN 300 MG CAP PO SCH ×3 (08:43→17:46)
[2017-10-20] MEDS: DOCUSATE SODIUM 50 MG/SENNA 8.6 MG TAB PO SCH ×2 (08:43→20:12)
[2017-10-20] MEDS: DILTIAZEM HCL 30 MG TAB PO SCH ×4 (08:44→23:40)
[2017-10-20] MEDS: CYANOCOBALAMIN 1,000 MCG TAB PO SCH (08:44)
[2017-10-20] MEDS: CARBIDOPA/LEVODOPA 25 MG/100 MG TAB PO SCH ×3 (08:44→17:46)
[2017-10-20] MEDS: oxyCODONE HCL 20 MG CONTROLLED RELEASE TAB PO SCH ×2 (08:44→20:12)
[2017-10-20] MEDS: CHOLECALCIFEROL (VIT D3) 1000 UNIT TAB PO SCH (08:44)
[2017-10-20] MEDS: MULTIVITAMIN TAB PO SCH (08:44)
[2017-10-20] MEDS: CARVEDILOL 12.5 MG TAB PO SCH ×2 (08:44→20:12)
[2017-10-20] MEDS: ASCORBIC ACID 500 MG TAB PO SCH (08:45)
[2017-10-20] MEDS: TAMSULOSIN HCL 0.4 MG CAP PO SCH (08:45)
[2017-10-20] MEDS: SODIUM CHLORIDE 0.9% FLUSH 10 ML FLUSH IV FLUSH SCH ×2 (08:48→20:13)
--- NOTE | 2017-10-20 14:46 | PD.CARD.PN ---
Subjective Subjective Remarks PT without complaints Objective Medications Current Medications Medications (Trade) Dose Ordered Sig/Mendoza Route Start Time Stop Time Status Last Admin Diltiazem HCl 125 mg/Sodium Chloride 125 ml @ 5 mls/hr TITRATE PRN IV 10/18/17 22:00 10/19/17 08:11 (NS Flush) 2 ml UNSCH PRN IV FLUSH 10/18/17 22:15 (NS Flush) 2 ml BID IV FLUSH 10/19/17 09:00 10/20/17 08:48 (Tylenol) 650 mg Q4H PRN PO 10/18/17 22:15 (Zofran Inj) 4 mg Q6H PRN IVP 10/18/17 22:15 (Ambien) 5 mg HS PRN PO 10/18/17 22:15 (Narcan Inj) 0.4 mg UNSCH PRN IV PUSH 10/18/17 22:15 (Bridget-Colace) 1 tab BID PO 10/19/17 09:00 10/20/17 08:43 (Milk Of Magnesia Liq) 30 ml Q12H PRN PO 10/18/17 22:15 (Senokot) 17.2 mg Q12H PRN PO 10/18/17 22:15 (Dulcolax Supp) 10 mg DAILY PRN RECTAL 10/18/17 22:15 (Lactulose Liq) 30 ml DAILY PRN PO 10/18/17 22:15 (Vitamin C) 1,000 mg DAILY PO 10/19/17 09:00 10/20/17 08:45 (Sinemet 25-100 Mg) 2 tab TID PO 10/19/17 02:49 10/20/17 12:36 (Coreg) 25 mg BID PO 10/19/17 09:00 10/20/17 08:44 (Theragran) 1 tab DAILY PO 10/19/17 09:00 10/20/17 08:44 (Vitamin D3) 2,000 units DAILY PO 10/19/17 09:00 10/20/17 08:44 (Vitamin B12) 2,500 mcg DAILY PO 10/19/17 09:00 10/20/17 08:44 (Neurontin) 600 mg TID PO 10/19/17 02:49 10/20/17 12:36 (OxyCONTIN CR) 20 mg BID PO 10/19/17 03:00 10/20/17 08:44 Miscellaneous Information Patient in critical care unit? Ass... Q361D .XX 10/19/17 02:00 10/19/17 02:00 (Chlorhexidine 2% Cloth) 3 pack DAILY@04 TOPICAL 10/19/17 04:00 10/23/17 04:01 10/20/17 04:00 (Chlorhexidine 2% Cloth) 3 pack UNSCH PRN TOPICAL 10/19/17 02:00 10/24/17 01:52 (Cardizem) 30 mg TID PO 10/20/17 09:00 10/20/17 12:36 (Flomax) 0.4 mg DAILY PO 10/20/17 09:00 10/20/17 08:45 (Coumadin) 5 mg DAILY@1600 PO 10/20/17 16:00 Vital Signs / I&O Vital Signs Date Time Temp Pulse Resp B/P (MAP) Pulse Ox O2 Delivery O2 Flow Rate FiO2 10/20/17 12:45 119 34 92 10/20/17 12:30 118 33 93 10/20/17 12:15 118 28 95 10/20/17 12:00 111 10/20/17 12:00 111 29 106/62 (77) 94 10/20/17 11:45 107 12 94 10/20/17 11:30 110 11 92 10/20/17 11:15 113 15 96 10/20/17 11:00 113 14 98/72 (81) 95 10/20/17 11:00 113 10/20/17 10:00 95 10/20/17 09:00 127 10/20/17 08:00 116 10/20/17 07:00 98.3 117 14 114/57 (76) 99 10/20/17 06:00 96 10/20/17 04:00 125 10/20/17 03:00 98.2 123 24 154/104 (121) 93 10/20/17 02:00 116 10/20/17 00:00 114 10/19/17 23:00 98.4 116 9 138/65 (89) 95 10/19/17 22:00 119 10/19/17 20:00 102 10/19/17 19:00 98.2 71 11 114/64 (81) 94 10/19/17 18:45 77 10/19/17 18:30 81 10/19/17 18:15 94 10/19/17 18:00 70 10/19/17 18:00 70 10 114/66 (82) 94 10/19/17 17:45 72 10/19/17 17:30 69 10/19/17 17:15 69 10/19/17 17:00 80 11 119/63 (81) 94 10/19/17 17:00 80 10/19/17 16:45 77 10/19/17 16:30 75 10/19/17 16:15 76 10/19/17 16:00 70 10/19/17 16:00 70 24 117/67 (84) 96 10/19/17 15:45 91 10/19/17 15:30 116 10/19/17 15:15 120 10/19/17 15:00 92 10/19/17 15:00 92 11 114/65 (81) 93 I/O 10/19/17 10/19/17 10/19/17 10/20/17 10/20/17 10/20/17 07:00 15:00 23:00 07:00 15:00 23:00 Intake Total 740 ml 300 ml Output Total 340 ml 1300 ml 2100 ml Balance -340 ml -560 ml -1800 ml Intake Oral 740 ml 300 ml Output Urine Total 340 ml 1300 ml 2100 ml # Voids 1 # Bowel Movements 0 0 Physical Exam Current Medications Medications (Trade) Dose Ordered Sig/Mendoza Route Start Time Stop Time Status Last Admin Diltiazem HCl 125 mg/Sodium Chloride 125 ml @ 5 mls/hr TITRATE PRN IV 10/18/17 22:00 10/19/17 08:11 (NS Flush) 2 ml UNSCH PRN IV FLUSH 10/18/17 22:15 (NS Flush) 2 ml BID IV FLUSH 10/19/17 09:00 10/20/17 08:48 (Tylenol) 650 mg Q4H PRN PO 10/18/17 22:15 (Zofran Inj) 4 mg Q6H PRN IVP 10/18/17 22:15 (Ambien) 5 mg HS PRN PO 10/18/17 22:15 (Narcan Inj) 0.4 mg UNSCH PRN IV PUSH 10/18/17 22:15 (Bridget-Colace) 1 tab BID PO 10/19/17 09:00 10/20/17 08:43 (Milk Of Magnesia Liq) 30 ml Q12H PRN PO 10/18/17 22:15 (Senokot) 17.2 mg Q12H PRN PO 10/18/17 22:15 (Dulcolax Supp) 10 mg DAILY PRN RECTAL 10/18/17 22:15 (Lactulose Liq) 30 ml DAILY PRN PO 10/18/17 22:15 (Vitamin C) 1,000 mg DAILY PO 10/19/17 09:00 10/20/17 08:45 (Sinemet 25-100 Mg) 2 tab TID PO 10/19/17 02:49 10/20/17 12:36 (Coreg) 25 mg BID PO 10/19/17 09:00 10/20/17 08:44 (Theragran) 1 tab DAILY PO 10/19/17 09:00 10/20/17 08:44 (Vitamin D3) 2,000 units DAILY PO 10/19/17 09:00 10/20/17 08:44 (Vitamin B12) 2,500 mcg DAILY PO 10/19/17 09:00 10/20/17 08:44 (Neurontin) 600 mg TID PO 10/19/17 02:49 10/20/17 12:36 (OxyCONTIN CR) 20 mg BID PO 10/19/17 03:00 10/20/17 08:44 Miscellaneous Information Patient in critical care unit? Ass... Q361D .XX 10/19/17 02:00 10/19/17 02:00 (Chlorhexidine 2% Cloth) 3 pack DAILY@04 TOPICAL 10/19/17 04:00 10/23/17 04:01 10/20/17 04:00 (Chlorhexidine 2% Cloth) 3 pack UNSCH PRN TOPICAL 10/19/17 02:00 10/24/17 01:52 (Cardizem) 30 mg TID PO 10/20/17 09:00 10/20/17 12:36 (Flomax) 0.4 mg DAILY PO 10/20/17 09:00 10/20/17 08:45 (Coumadin) 5 mg DAILY@1600 PO 10/20/17 16:00 Laboratory Laboratory Tests Test 10/20/17 05:21 White Blood Count 7.7 TH/MM3 Red Blood Count 3.93 MIL/MM3 Hemoglobin 13.1 GM/DL Hematocrit 39.2 % Mean Corpuscular Volume 99.8 FL Mean Corpuscular Hemoglobin 33.3 PG Mean Corpuscular Hemoglobin Concent 33.4 % Red Cell Distribution Width 14.7 % Platelet Count 159 TH/MM3 Mean Platelet Volume 7.5 FL Neutrophils (%) (Auto) 81.5 % Lymphocytes (%) (Auto) 11.1 % Monocytes (%) (Auto) 4.4 % Eosinophils (%) (Auto) 2.6 % Basophils (%) (Auto) 0.4 % Neutrophils # (Auto) 6.3 TH/MM3 Lymphocytes # (Auto) 0.9 TH/MM3 Monocytes # (Auto) 0.3 TH/MM3 Eosinophils # (Auto) 0.2 TH/MM3 Basophils # (Auto) 0.0 TH/MM3 CBC Comment DIFF FINAL Differential Comment Prothrombin Time 21.5 SEC Prothromb Time International Ratio 2.1 RATIO Blood Urea Nitrogen 18 MG/DL Creatinine 0.81 MG/DL Random Glucose 112 MG/DL Calcium Level 8.5 MG/DL Sodium Level 140 MEQ/L Potassium Level 3.8 MEQ/L Chloride Level 103 MEQ/L Carbon Dioxide Level 30.8 MEQ/L Anion Gap 6 MEQ/L Estimat Glomerular Filtration Rate 92 ML/MIN Assessment and Plan Assessment and Plan AF- on coreg 25 bid; cardizem 30 po TID started this am -cardizem gtt is off for last 24 hours => increase cardizem to Q6 and add digoxin ==ok for d/c if HR acceptable Marleen Gonzales MD Oct 20, 2017 14:46
[2017-10-20] MEDS ORDERED: DIGOXIN 0.5 MG/2 ML VIAL IV PUSH ONE (15:00)
[2017-10-20] MEDS: WARFARIN SOD 5 MG TAB PO SCH (15:58)
[2017-10-21] VITALS (11 sets, daily range): BP systolic 99–125; BP diastolic 55–75; PULSE 56–86; RESP 18; TEMP 97.2–97.8; O2SAT 94–99
[2017-10-21] MEDS: CHLORHEXIDINE GLUCONATE 2 % 1 PACK (2 CLOTHS)(taper/protocol) TOPICAL SCH (04:00)
[2017-10-21] MEDS: DILTIAZEM HCL 30 MG TAB PO SCH ×4 (05:35→23:51)
--- NOTE | 2017-10-21 08:07 | HHI.PR ---
Subjective Remarks resting quietly on [facility] floor no significant tachacardia last pm but bp 90s systolic today Objective Vital Signs Date Time Temp Pulse Resp B/P (MAP) Pulse Ox O2 Delivery O2 Flow Rate FiO2 10/21/17 04:07 70 10/21/17 04:00 97.5 70 18 99/55 (70) 96 10/21/17 00:14 78 10/21/17 00:00 97.2 86 18 125/75 (92) 99 10/20/17 20:01 73 10/20/17 20:00 97.5 80 18 120/59 (79) 96 10/20/17 19:30 Room Air 10/20/17 17:18 97.3 69 20 115/67 (83) 95 10/20/17 17:00 Room Air 10/20/17 16:00 109 10/20/17 16:00 109 19 96/62 (73) 97 10/20/17 12:45 119 34 92 10/20/17 12:30 118 33 93 10/20/17 12:15 118 28 95 10/20/17 12:00 111 10/20/17 12:00 111 29 106/62 (77) 94 10/20/17 11:45 107 12 94 10/20/17 11:30 110 11 92 10/20/17 11:15 113 15 96 10/20/17 11:00 113 14 98/72 (81) 95 10/20/17 11:00 113 10/20/17 10:00 95 10/20/17 09:00 127 I/O 10/20/17 10/20/17 10/20/17 10/21/17 10/21/17 10/21/17 07:00 15:00 23:00 07:00 15:00 23:00 Intake Total 300 ml 840 ml 650 ml Output Total 2100 ml 900 ml Balance -1800 ml -60 ml 650 ml Intake Oral 300 ml 840 ml 650 ml Output Urine Total 2100 ml 900 ml # Voids 1 # Bowel Movements 0 1 0 Result Diagram: 10/20/1752010/20/17520 Imaging Inpatient Medications Acetaminophen (Tylenol) 650 mg Q4H PRN PO TEMP > 100.4; Start 10/18/17 at 22: 15 Ascorbic Acid (Vitamin C) 1,000 mg DAILY PO Last administered on 10/20/17 08: 45; Start 10/19/17 at 09:00 Bisacodyl (Dulcolax Supp) 10 mg DAILY PRN RECTAL SEVERE CONSITIPATION; Start 10/18/17 at 22:15 Carbidopa/Levodopa (Sinemet 25-100 Mg) 2 tab TID PO Last administered on 17:46; Start 10/19/17 at 02:49 Carvedilol (Coreg) 25 mg BID PO Last administered on 10/20/17 20:12; Start at 09:00 Chlorhexidine Gluconate (Chlorhexidine 2% Cloth) 3 pack UNSCH PRN TOPICAL HYGIENIC CARE; Start 10/19/17 at 02:00; Stop 10/24/17 at 01:52 Cholecalciferol (Vitamin D3) 2,000 units DAILY PO Last administered on 08:44; Start 10/19/17 at 09:00 Cyanocobalamin (Vitamin B12) 2,500 mcg DAILY PO Last administered on 10/20/17 08:44; Start 10/19/17 at 09:00 Digoxin (Lanoxin Inj) 0.5 mg ONCE ONCE IV PUSH Last administered on 10/20/17 15:57; Start 10/20/17 at 15:00; Stop 10/20/17 at 15:09; Status DC Digoxin (Lanoxin) 0.25 mg DAILY PO ; Start 10/21/17 at 09:00 Diltiazem HCl (Cardizem Inj) 10 mg ONCE ONCE IV Last administered on 21:45; Start 10/18/17 at 21:45; Stop 10/18/17 at 21:46; Status DC Diltiazem HCl (Cardizem) 30 mg Q6HR PO Last administered on 10/21/17 05:35; Start 10/20/17 at 18:00 Diltiazem HCl 125 mg/Sodium Chloride 125 ml @ 5 mls/hr TITRATE PRN IV Tachycardia Last administered on 10/19/17 08:11; Start 10/18/17 at 22:00 Gabapentin (Neurontin) 600 mg TID PO Last administered on 10/20/17 17:46; Start 10/19/17 at 02:49 Lactulose (Lactulose Liq) 30 ml DAILY PRN PO SEVERE CONSITIPATION; Start 10/18 at 22:15 Magnesium Hydroxide (Milk Of Magnnora Liq) 30 ml Q12H PRN PO Mild constipation ; Start 10/18/17 at 22:15 Miscellaneous Information Patient in critical care unit? Ass... Q361D .XX Last administered on 10/19/17 02:00; Start 10/19/17 at 02:00 Multivitamins (Theragran) 1 tab DAILY PO Last administered on 10/20/17 08:44; Start 10/19/17 at 09:00 Naloxone HCl (Narcan Inj) 0.4 mg UNSCH PRN IV PUSH SEE LABEL COMMENTS; Start 10/18/17 at 22:15 Ondansetron HCl (Zofran Inj) 4 mg Q6H PRN IVP NAUSEA OR VOMITING; Start at 22:15 Oxycodone HCl (OxyCONTIN CR) 20 mg BID PO Last administered on 10/20/17 20:12 ; Start 10/19/17 at 03:00 Patient Medication Teaching (Coumadin Booklet) 1 ONCE ONCE OTHER Last administered on 10/20/17 09:53; Start 10/20/17 at 08:45; Stop 10/20/17 at 08:46 ; Status DC Senna/Docusate Sodium (Bridget-Colace) 1 tab BID PO Last administered on 20:12; Start 10/19/17 at 09:00 Sennosides (Senokot) 17.2 mg Q12H PRN PO Moderate constipation; Start at 22:15 Sodium Chloride (NS Flush) 2 ml BID IV FLUSH Last administered on 10/20/17 20: 13; Start 10/19/17 at 09:00 Tamsulosin HCl (Flomax) 0.4 mg DAILY PO Last administered on 10/20/17 08:45; Start 10/20/17 at 09:00 Warfarin Sodium (Coumadin) 5 mg DAILY@1600 PO Last administered on 10/20/17 15 :58; Start 10/20/17 at 16:00 Zolpidem Tartrate (Ambien) 5 mg HS PRN PO INSOMNIA; Start 10/18/17 at 22:15 Objective Remarks GENERAL: Well-nourished, well-developed patient. SKIN: Warm and dry. HEAD: Normocephalic. EYES: No scleral icterus. No injection or drainage. NECK: Supple, trachea midline. No JVD or lymphadenopathy. CARDIOVASCULAR:irregular with rate in 90s RESPIRATORY: Breath sounds equal bilaterally. No accessory muscle use. GASTROINTESTINAL: Abdomen soft, non-tender, nondistended. EXTREMITIES: No cyanosis, or edema. NEUROLOGICAL: Awake, alert, and oriented x 3. Non-focal. Medications and IVs Inpatient Medications Acetaminophen (Tylenol) 650 mg Q4H PRN PO TEMP > 100.4; Start 10/18/17 at 22: 15 Ascorbic Acid (Vitamin C) 1,000 mg DAILY PO Last administered on 10/20/17 08: 45; Start 10/19/17 at 09:00 Bisacodyl (Dulcolax Supp) 10 mg DAILY PRN RECTAL SEVERE CONSITIPATION; Start 10/18/17 at 22:15 Carbidopa/Levodopa (Sinemet 25-100 Mg) 2 tab TID PO Last administered on 17:46; Start 10/19/17 at 02:49 Carvedilol (Coreg) 25 mg BID PO Last administered on 10/20/17 20:12; Start at 09:00 Chlorhexidine Gluconate (Chlorhexidine 2% Cloth) 3 pack UNSCH PRN TOPICAL HYGIENIC CARE; Start 10/19/17 at 02:00; Stop 10/24/17 at 01:52 Cholecalciferol (Vitamin D3) 2,000 units DAILY PO Last administered on 08:44; Start 10/19/17 at 09:00 Cyanocobalamin (Vitamin B12) 2,500 mcg DAILY PO Last administered on 10/20/17 08:44; Start 10/19/17 at 09:00 Digoxin (Lanoxin Inj) 0.5 mg ONCE ONCE IV PUSH Last administered on 10/20/17 15:57; Start 10/20/17 at 15:00; Stop 10/20/17 at 15:09; Status DC Digoxin (Lanoxin) 0.25 mg DAILY PO ; Start 10/21/17 at 09:00 Diltiazem HCl (Cardizem Inj) 10 mg ONCE ONCE IV Last administered on 21:45; Start 10/18/17 at 21:45; Stop 10/18/17 at 21:46; Status DC Diltiazem HCl (Cardizem) 30 mg Q6HR PO Last administered on 10/21/17 05:35; Start 10/20/17 at 18:00 Diltiazem HCl 125 mg/Sodium Chloride 125 ml @ 5 mls/hr TITRATE PRN IV Tachycardia Last administered on 10/19/17 08:11; Start 10/18/17 at 22:00 Gabapentin (Neurontin) 600 mg TID PO Last administered on 10/20/17 17:46; Start 10/19/17 at 02:49 Lactulose (Lactulose Liq) 30 ml DAILY PRN PO SEVERE CONSITIPATION; Start 10/18 at 22:15 Magnesium Hydroxide (Milk Of Magnesia Liq) 30 ml Q12H PRN PO Mild constipation ; Start 10/18/17 at 22:15 Miscellaneous Information Patient in critical care unit? Ass... Q361D .XX Last administered on 10/19/17 02:00; Start 10/19/17 at 02:00 Multivitamins (Theragran) 1 tab DAILY PO Last administered on 10/20/17 08:44; Start 10/19/17 at 09:00 Naloxone HCl (Narcan Inj) 0.4 mg UNSCH PRN IV PUSH SEE LABEL COMMENTS; Start 10/18/17 at 22:15 Ondansetron HCl (Zofran Inj) 4 mg Q6H PRN IVP NAUSEA OR VOMITING; Start at 22:15 Oxycodone HCl (OxyCONTIN CR) 20 mg BID PO Last administered on 10/20/17 20:12 ; Start 10/19/17 at 03:00 Patient Medication Teaching (Coumadin Booklet) 1 ONCE ONCE OTHER Last administered on 10/20/17 09:53; Start 10/20/17 at 08:45; Stop 10/20/17 at 08:46 ; Status DC Senna/Docusate Sodium (Bridget-Colace) 1 tab BID PO Last administered on 20:12; Start 10/19/17 at 09:00 Sennosides (Senokot) 17.2 mg Q12H PRN PO Moderate constipation; Start at 22:15 Sodium Chloride (NS Flush) 2 ml BID IV FLUSH Last administered on 10/20/17 20: 13; Start 10/19/17 at 09:00 Tamsulosin HCl (Flomax) 0.4 mg DAILY PO Last administered on 10/20/17 08:45; Start 10/20/17 at 09:00 Warfarin Sodium (Coumadin) 5 mg DAILY@1600 PO Last administered on 10/20/17 15 :58; Start 10/20/17 at 16:00 Zolpidem Tartrate (Ambien) 5 mg HS PRN PO INSOMNIA; Start 10/18/17 at 22:15 Assessment and Plan Problem List: (1) Atrial fibrillation with RVR ICD Codes: I48.91 - Unspecified atrial fibrillation Status: Resolved Assessment and Plan heart rate now stable but bp low will have pt ambulate to assure safety prior to dc home Discussed Condition With patient and nursing Discharge Planning home with [facility] Navarro Jewell DO Oct 21, 2017 08:07
[2017-10-21] MEDS: SODIUM CHLORIDE 0.9% FLUSH 10 ML FLUSH IV FLUSH SCH ×2 (09:00→20:33)
[2017-10-21] MEDS: CARBIDOPA/LEVODOPA 25 MG/100 MG TAB PO SCH ×3 (10:02→17:54)
[2017-10-21] MEDS: GABAPENTIN 300 MG CAP PO SCH ×3 (10:03→17:54)
[2017-10-21] MEDS: CYANOCOBALAMIN 1,000 MCG TAB PO SCH (10:03)
[2017-10-21] MEDS: MULTIVITAMIN TAB PO SCH (10:03)
[2017-10-21] MEDS: TAMSULOSIN HCL 0.4 MG CAP PO SCH (10:03)
[2017-10-21] MEDS: ASCORBIC ACID 500 MG TAB PO SCH (10:03)
[2017-10-21] MEDS: oxyCODONE HCL 20 MG CONTROLLED RELEASE TAB PO SCH ×2 (10:04→20:34)
[2017-10-21] MEDS: DIGOXIN 0.25 MG TAB PO SCH (10:04)
[2017-10-21] MEDS: CARVEDILOL 12.5 MG TAB PO SCH ×2 (10:04→20:34)
[2017-10-21] MEDS: CHOLECALCIFEROL (VIT D3) 1000 UNIT TAB PO SCH (10:05)
[2017-10-21] MEDS: DOCUSATE SODIUM 50 MG/SENNA 8.6 MG TAB PO SCH ×2 (10:05→20:34)
--- NOTE | 2017-10-21 10:56 | PD.CARD.PN ---
Subjective Subjective Remarks no CV complaints Objective Medications Current Medications Medications (Trade) Dose Ordered Sig/Mendoza Route Start Time Stop Time Status Last Admin Diltiazem HCl 125 mg/Sodium Chloride 125 ml @ 5 mls/hr TITRATE PRN IV 10/18/17 22:00 10/19/17 08:11 (NS Flush) 2 ml UNSCH PRN IV FLUSH 10/18/17 22:15 (NS Flush) 2 ml BID IV FLUSH 10/19/17 09:00 10/21/17 09:00 (Tylenol) 650 mg Q4H PRN PO 10/18/17 22:15 (Zofran Inj) 4 mg Q6H PRN IVP 10/18/17 22:15 (Ambien) 5 mg HS PRN PO 10/18/17 22:15 (Narcan Inj) 0.4 mg UNSCH PRN IV PUSH 10/18/17 22:15 (Bridget-Colace) 1 tab BID PO 10/19/17 09:00 10/21/17 10:05 (Milk Of Magnesia Liq) 30 ml Q12H PRN PO 10/18/17 22:15 (Senokot) 17.2 mg Q12H PRN PO 10/18/17 22:15 (Dulcolax Supp) 10 mg DAILY PRN RECTAL 10/18/17 22:15 (Lactulose Liq) 30 ml DAILY PRN PO 10/18/17 22:15 (Vitamin C) 1,000 mg DAILY PO 10/19/17 09:00 10/21/17 10:03 (Sinemet 25-100 Mg) 2 tab TID PO 10/19/17 02:49 10/21/17 10:02 (Coreg) 25 mg BID PO 10/19/17 09:00 10/21/17 10:04 (Theragran) 1 tab DAILY PO 10/19/17 09:00 10/21/17 10:03 (Vitamin D3) 2,000 units DAILY PO 10/19/17 09:00 10/21/17 10:05 (Vitamin B12) 2,500 mcg DAILY PO 10/19/17 09:00 10/21/17 10:03 (Neurontin) 600 mg TID PO 10/19/17 02:49 10/21/17 10:03 (OxyCONTIN CR) 20 mg BID PO 10/19/17 03:00 10/21/17 10:04 Miscellaneous Information Patient in critical care unit? Ass... Q361D .XX 10/19/17 02:00 10/19/17 02:00 (Chlorhexidine 2% Cloth) 3 pack DAILY@04 TOPICAL 10/19/17 04:00 10/23/17 04:01 10/20/17 04:00 (Chlorhexidine 2% Cloth) 3 pack UNSCH PRN TOPICAL 10/19/17 02:00 10/24/17 01:52 (Flomax) 0.4 mg DAILY PO 10/20/17 09:00 10/21/17 10:03 (Coumadin) 5 mg DAILY@1600 PO 10/20/17 16:00 10/20/17 15:58 (Cardizem) 30 mg Q6HR PO 10/20/17 18:00 10/21/17 05:35 (Lanoxin) 0.25 mg DAILY PO 10/21/17 09:00 10/21/17 10:04 Vital Signs / I&O Vital Signs Date Time Temp Pulse Resp B/P (MAP) Pulse Ox O2 Delivery O2 Flow Rate FiO2 10/21/17 08:00 97.3 68 18 119/67 (84) 94 10/21/17 04:07 70 10/21/17 04:00 97.5 70 18 99/55 (70) 96 10/21/17 00:14 78 10/21/17 00:00 97.2 86 18 125/75 (92) 99 10/20/17 20:01 73 10/20/17 20:00 97.5 80 18 120/59 (79) 96 10/20/17 19:30 Room Air 10/20/17 17:18 97.3 69 20 115/67 (83) 95 10/20/17 17:00 Room Air 10/20/17 16:00 109 10/20/17 16:00 109 19 96/62 (73) 97 10/20/17 12:45 119 34 92 10/20/17 12:30 118 33 93 10/20/17 12:15 118 28 95 10/20/17 12:00 111 10/20/17 12:00 111 29 106/62 (77) 94 10/20/17 11:45 107 12 94 10/20/17 11:30 110 11 92 10/20/17 11:15 113 15 96 10/20/17 11:00 113 14 98/72 (81) 95 10/20/17 11:00 113 I/O 10/20/17 10/20/17 10/20/17 10/21/17 10/21/17 10/21/17 07:00 15:00 23:00 07:00 15:00 23:00 Intake Total 300 ml 840 ml 650 ml Output Total 2100 ml 900 ml Balance -1800 ml -60 ml 650 ml Intake Oral 300 ml 840 ml 650 ml Output Urine Total 2100 ml 900 ml # Voids 1 # Bowel Movements 0 1 0 Physical Exam GENERAL: Well-nourished, well-developed patient. SKIN: Warm and dry. HEAD: Normocephalic. EYES: No scleral icterus. No injection or drainage. NECK: Supple, trachea midline. No JVD or lymphadenopathy. CARDIOVASCULAR: Regular rate and rhythm without murmurs, gallops, or rubs. RESPIRATORY: Breath sounds equal bilaterally. No accessory muscle use. GASTROINTESTINAL: Abdomen soft, non-tender, nondistended. EXTREMITIES: No cyanosis, or edema. NEUROLOGICAL: Awake, alert, and oriented x 3. Non-focal. 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 Gabe Harris MD Assessment and Plan Problem List: (1) Atrial fibrillation with RVR ICD Codes: I48.91 - Unspecified atrial fibrillation Status: Resolved Plan: Telemetry V paced No CV complaints Recs: Cont rate control with BB and CCB Cont OAC Sign off (2) GERD (gastroesophageal reflux disease) ICD Codes: K21.9 - Gastro-esophageal reflux disease without esophagitis (3) Hyperlipidemia ICD Codes: E78.5 - Hyperlipidemia, unspecified (4) HTN (hypertension) ICD Codes: I10 - Essential (primary) hypertension (5) Afib ICD Codes: I48.91 - Unspecified atrial fibrillation Venkat Lee MD Oct 21, 2017 10:56
[2017-10-21] MEDS: WARFARIN SOD 5 MG TAB PO SCH (16:17)
[2017-10-22] VITALS (11 sets, daily range): BP systolic 86–122; BP diastolic 50–68; PULSE 70–85; RESP 16–18; TEMP 97.4–97.8; O2SAT 97–98
[2017-10-22] MEDS: CHLORHEXIDINE GLUCONATE 2 % 1 PACK (2 CLOTHS)(taper/protocol) TOPICAL SCH (04:00)
[2017-10-22] MEDS: DILTIAZEM HCL 30 MG TAB PO SCH (05:10)
[2017-10-22] MEDS: SODIUM CHLORIDE 0.9% FLUSH 10 ML FLUSH IV FLUSH SCH ×2 (09:00→20:21)
[2017-10-22] MEDS: DOCUSATE SODIUM 50 MG/SENNA 8.6 MG TAB PO SCH ×2 (09:00→20:21)
[2017-10-22] MEDS: oxyCODONE HCL 20 MG CONTROLLED RELEASE TAB PO SCH ×2 (09:25→20:20)
[2017-10-22] MEDS: CARBIDOPA/LEVODOPA 25 MG/100 MG TAB PO SCH ×3 (09:25→17:13)
[2017-10-22] MEDS: ASCORBIC ACID 500 MG TAB PO SCH (09:26)
[2017-10-22] MEDS: CHOLECALCIFEROL (VIT D3) 1000 UNIT TAB PO SCH (09:26)
[2017-10-22] MEDS: GABAPENTIN 300 MG CAP PO SCH ×3 (09:26→17:11)
[2017-10-22] MEDS: CYANOCOBALAMIN 1,000 MCG TAB PO SCH (09:26)
[2017-10-22] MEDS: MULTIVITAMIN TAB PO SCH (09:26)
[2017-10-22] MEDS: TAMSULOSIN HCL 0.4 MG CAP PO SCH (09:27)
[2017-10-22] MEDS: DIGOXIN 0.25 MG TAB PO SCH (09:27)
[2017-10-22] MEDS: CARVEDILOL 12.5 MG TAB PO SCH ×2 (09:28→20:20)
--- NOTE | 2017-10-22 10:00 | HHI.PR ---
Subjective Remarks resting quietly [facility] no significant tachacardia last pm but bp barely 100 systolic will change to cardize cd and follow closely Objective Vital Signs Date Time Temp Pulse Resp B/P (MAP) Pulse Ox O2 Delivery O2 Flow Rate FiO2 10/22/17 08:00 97.8 78 16 103/58 (73) 98 10/22/17 04:04 83 10/22/17 04:00 97.4 70 18 107/56 (73) 98 10/22/17 04:00 Room Air 10/22/17 00:00 97.5 79 18 122/68 (86) 97 10/22/17 00:00 Room Air 10/21/17 23:59 71 10/21/17 20:00 97.4 74 18 104/55 (71) 96 10/21/17 20:00 Room Air 10/21/17 19:49 81 10/21/17 17:50 74 18 100/63 (75) 98 10/21/17 16:00 97.6 56 18 99/58 (72) 98 10/21/17 12:00 97.8 65 18 99/56 (70) 97 I/O 10/21/17 10/21/17 10/21/17 10/22/17 10/22/17 10/22/17 07:00 15:00 23:00 07:00 15:00 23:00 Intake Total 650 ml 960 ml 480 ml Balance 650 ml 960 ml 480 ml Intake Oral 650 ml 960 ml 480 ml # Voids 1 3 0 # Bowel Movements 0 1 0 Result Diagram: 10/20/1752010/20/1721 Objective Remarks GENERAL: Well-nourished, well-developed patient. SKIN: Warm and dry. HEAD: Normocephalic. EYES: No scleral icterus. No injection or drainage. NECK: Supple, trachea midline. No JVD or lymphadenopathy. CARDIOVASCULAR:irregular with rate in 90s RESPIRATORY: Breath sounds equal bilaterally. No accessory muscle use. GASTROINTESTINAL: Abdomen soft, non-tender, nondistended. EXTREMITIES: No cyanosis, or edema. NEUROLOGICAL: Awake, alert, and oriented x 3. Non-focal. Medications and IVs Inpatient Medications Acetaminophen (Tylenol) 650 mg Q4H PRN PO TEMP > 100.4; Start 10/18/17 at 22: 15 Ascorbic Acid (Vitamin C) 1,000 mg DAILY PO Last administered on 10/22/17 09: 26; Start 10/19/17 at 09:00 Bisacodyl (Dulcolax Supp) 10 mg DAILY PRN RECTAL SEVERE CONSITIPATION; Start 10/18/17 at 22:15 Carbidopa/Levodopa (Sinemet 25-100 Mg) 2 tab TID PO Last administered on 09:25; Start 10/19/17 at 02:49 Carvedilol (Coreg) 25 mg BID PO Last administered on 10/22/17 09:28; Start at 09:00 Chlorhexidine Gluconate (Chlorhexidine 2% Cloth) 3 pack UNSCH PRN TOPICAL HYGIENIC CARE; Start 10/19/17 at 02:00; Stop 10/24/17 at 01:52 Cholecalciferol (Vitamin D3) 2,000 units DAILY PO Last administered on 09:26; Start 10/19/17 at 09:00 Cyanocobalamin (Vitamin B12) 2,500 mcg DAILY PO Last administered on 10/22/17 09:26; Start 10/19/17 at 09:00 Digoxin (Lanoxin Inj) 0.5 mg ONCE ONCE IV PUSH Last administered on 10/20/17 15:57; Start 10/20/17 at 15:00; Stop 10/20/17 at 15:09; Status DC Digoxin (Lanoxin) 0.25 mg DAILY PO Last administered on 10/22/17 09:27; Start 10/21/17 at 09:00 Diltiazem HCl (Cardizem Inj) 10 mg ONCE ONCE IV Last administered on 21:45; Start 10/18/17 at 21:45; Stop 10/18/17 at 21:46; Status DC Diltiazem HCl (Cardizem) 30 mg Q6HR PO Last administered on 10/22/17 05:10; Start 10/20/17 at 18:00; Stop 10/22/17 at 09:52; Status DC Diltiazem HCl 125 mg/Sodium Chloride 125 ml @ 5 mls/hr TITRATE PRN IV Tachycardia Last administered on 10/19/17 08:11; Start 10/18/17 at 22:00 Gabapentin (Neurontin) 600 mg TID PO Last administered on 10/22/17 09:26; Start 10/19/17 at 02:49 Lactulose (Lactulose Liq) 30 ml DAILY PRN PO SEVERE CONSITIPATION; Start 10/18 at 22:15 Magnesium Hydroxide (Milk Of Magnesia Liq) 30 ml Q12H PRN PO Mild constipation ; Start 10/18/17 at 22:15 Miscellaneous Information Patient in critical care unit? Ass... Q361D .XX Last administered on 10/19/17 02:00; Start 10/19/17 at 02:00 Multivitamins (Theragran) 1 tab DAILY PO Last administered on 10/22/17 09:26; Start 10/19/17 at 09:00 Naloxone HCl (Narcan Inj) 0.4 mg UNSCH PRN IV PUSH SEE LABEL COMMENTS; Start 10/18/17 at 22:15 Ondansetron HCl (Zofran Inj) 4 mg Q6H PRN IVP NAUSEA OR VOMITING; Start at 22:15 Oxycodone HCl (OxyCONTIN CR) 20 mg BID PO Last administered on 10/22/17 09:25 ; Start 10/19/17 at 03:00 Patient Medication Teaching (Coumadin Booklet) 1 ONCE ONCE OTHER Last administered on 10/20/17 09:53; Start 10/20/17 at 08:45; Stop 10/20/17 at 08:46 ; Status DC Senna/Docusate Sodium (Bridget-Colace) 1 tab BID PO Last administered on 20:34; Start 10/19/17 at 09:00 Sennosides (Senokot) 17.2 mg Q12H PRN PO Moderate constipation; Start at 22:15 Sodium Chloride (NS Flush) 2 ml BID IV FLUSH Last administered on 10/21/17 20: 33; Start 10/19/17 at 09:00 Tamsulosin HCl (Flomax) 0.4 mg DAILY PO Last administered on 10/22/17 09:27; Start 10/20/17 at 09:00 Warfarin Sodium (Coumadin) 5 mg DAILY@1600 PO Last administered on 10/21/17 16 :17; Start 10/20/17 at 16:00 Zolpidem Tartrate (Ambien) 5 mg HS PRN PO INSOMNIA; Start 10/18/17 at 22:15 Assessment and Plan Problem List: (1) Atrial fibrillation with RVR ICD Codes: I48.91 - Unspecified atrial fibrillation Status: Resolved Assessment and Plan heart rate now stable but bp low will reduce coreg and change cardizem to CD Discussed Condition With patient Navarro Jewell DO Oct 22, 2017 09:59
[2017-10-22] MEDS ORDERED: DILTIAZEM-CD 120 MG CAP ER PO SCH (16:00)
[2017-10-22] MEDS: WARFARIN SOD 5 MG TAB PO SCH (17:12)
[2017-10-23] VITALS (9 sets, daily range): BP systolic 98–144; BP diastolic 54–68; PULSE 76–101; RESP 16–20; TEMP 97.1–98.2; O2SAT 96–97
[2017-10-23] MEDS: CHLORHEXIDINE GLUCONATE 2 % 1 PACK (2 CLOTHS)(taper/protocol) TOPICAL SCH (03:09)
[2017-10-23] MEDS: TAMSULOSIN HCL 0.4 MG CAP PO SCH (10:18)
[2017-10-23] MEDS: oxyCODONE HCL 20 MG CONTROLLED RELEASE TAB PO SCH ×2 (10:18→20:31)
[2017-10-23] MEDS: DIGOXIN 0.25 MG TAB PO SCH (10:19)
[2017-10-23] MEDS: DILTIAZEM-CD 120 MG CAP ER PO SCH (10:19)
[2017-10-23] MEDS: MULTIVITAMIN TAB PO SCH (10:19)
[2017-10-23] MEDS: CARBIDOPA/LEVODOPA 25 MG/100 MG TAB PO SCH ×3 (10:19→17:42)
[2017-10-23] MEDS: ASCORBIC ACID 500 MG TAB PO SCH (10:19)
[2017-10-23] MEDS: GABAPENTIN 300 MG CAP PO SCH ×3 (10:19→17:42)
[2017-10-23] MEDS: CARVEDILOL 12.5 MG TAB PO SCH ×2 (10:20→20:31)
[2017-10-23] MEDS: SODIUM CHLORIDE 0.9% FLUSH 10 ML FLUSH IV FLUSH SCH ×2 (10:20→20:31)
[2017-10-23] MEDS: CYANOCOBALAMIN 1,000 MCG TAB PO SCH (10:20)
[2017-10-23] MEDS: DOCUSATE SODIUM 50 MG/SENNA 8.6 MG TAB PO SCH ×2 (10:20→20:31)
[2017-10-23] MEDS: CHOLECALCIFEROL (VIT D3) 1000 UNIT TAB PO SCH (10:22)
--- NOTE | 2017-10-23 10:24 | HHI.PR ---
Subjective Remarks Resting comfortably denies any SOB or CP. Heart rate well controlled. Objective Vital Signs Date Time Temp Pulse Resp B/P (MAP) Pulse Ox O2 Delivery O2 Flow Rate FiO2 10/23/17 08:05 97.8 87 20 144/63 (90) 96 10/23/17 04:00 97.5 78 17 111/66 (81) 97 10/23/17 04:00 Room Air 10/23/17 03:42 80 10/23/17 00:00 Room Air 10/23/17 00:00 97.5 95 17 98/68 (78) 96 10/22/17 23:56 85 10/22/17 20:00 97.4 83 17 97/53 (68) 97 10/22/17 20:00 Room Air 10/22/17 19:53 83 10/22/17 16:00 97.8 79 18 86/50 (62) 97 10/22/17 16:00 71 10/22/17 12:00 70 10/22/17 12:00 97.6 70 18 87/50 (62) 97 10/22/17 11:33 90/50 (63) 10/22/17 10:25 17 I/O 10/22/17 10/22/17 10/22/17 10/23/17 10/23/17 10/23/17 07:00 15:00 23:00 07:00 15:00 23:00 Intake Total 480 ml 480 ml 480 ml Balance 480 ml 480 ml 480 ml Intake Oral 480 ml 480 ml 480 ml # Voids 0 2 0 # Bowel Movements 0 1 Result Diagram: 10/20/1752010/20/17520 Objective Remarks GENERAL: alert and cooperative SKIN: Warm and dry. HEAD: Normocephalic. EYES: No scleral icterus. No injection or drainage. NECK: Supple, trachea midline. No JVD or lymphadenopathy. CARDIOVASCULAR: Regular rate and rhythm without murmurs, gallops, or rubs. RESPIRATORY: Breath sounds equal bilaterally. No accessory muscle use. GASTROINTESTINAL: Abdomen soft, non-tender, nondistended. MUSCULOSKELETAL: No cyanosis, or edema. BACK: Nontender without obvious deformity. No CVA tenderness. Medications and IVs Current Medications Medications (Trade) Dose Ordered Sig/Mendoza Route Start Time Stop Time Status Last Admin Diltiazem HCl 125 mg/Sodium Chloride 125 ml @ 5 mls/hr TITRATE PRN IV 10/18/17 22:00 10/19/17 08:11 (NS Flush) 2 ml UNSCH PRN IV FLUSH 10/18/17 22:15 (NS Flush) 2 ml BID IV FLUSH 10/19/17 09:00 10/22/17 20:21 (Tylenol) 650 mg Q4H PRN PO 10/18/17 22:15 (Zofran Inj) 4 mg Q6H PRN IVP 10/18/17 22:15 (Ambien) 5 mg HS PRN PO 10/18/17 22:15 (Narcan Inj) 0.4 mg UNSCH PRN IV PUSH 10/18/17 22:15 (Bridget-Colace) 1 tab BID PO 10/19/17 09:00 10/22/17 20:21 (Milk Of Magnesia Liq) 30 ml Q12H PRN PO 10/18/17 22:15 (Senokot) 17.2 mg Q12H PRN PO 10/18/17 22:15 (Dulcolax Supp) 10 mg DAILY PRN RECTAL 10/18/17 22:15 (Lactulose Liq) 30 ml DAILY PRN PO 10/18/17 22:15 (Vitamin C) 1,000 mg DAILY PO 10/19/17 09:00 10/22/17 09:26 (Sinemet 25-100 Mg) 2 tab TID PO 10/19/17 02:49 10/22/17 17:13 (Theragran) 1 tab DAILY PO 10/19/17 09:00 10/22/17 09:26 (Vitamin D3) 2,000 units DAILY PO 10/19/17 09:00 10/22/17 09:26 (Vitamin B12) 2,500 mcg DAILY PO 10/19/17 09:00 10/22/17 09:26 (Neurontin) 600 mg TID PO 10/19/17 02:49 10/22/17 17:11 (OxyCONTIN CR) 20 mg BID PO 10/19/17 03:00 10/22/17 20:20 Miscellaneous Information Patient in critical care unit? Ass... Q361D .XX 10/19/17 02:00 10/19/17 02:00 (Chlorhexidine 2% Cloth) 3 pack UNSCH PRN TOPICAL 10/19/17 02:00 10/24/17 01:52 (Flomax) 0.4 mg DAILY PO 10/20/17 09:00 10/22/17 09:27 (Coumadin) 5 mg DAILY@1600 PO 10/20/17 16:00 10/22/17 17:12 (Lanoxin) 0.25 mg DAILY PO 10/21/17 09:00 10/22/17 09:27 (Coreg) 12.5 mg BID PO 10/22/17 21:00 10/22/17 20:20 (Cardizem Cd) 120 mg DAILY PO 10/23/17 09:00 Assessment and Plan Problem List: (1) Atrial fibrillation with RVR ICD Codes: I48.91 - Unspecified atrial fibrillation Status: Resolved (2) Hyperlipidemia ICD Codes: E78.5 - Hyperlipidemia, unspecified (3) GERD (gastroesophageal reflux disease) ICD Codes: K21.9 - Gastro-esophageal reflux disease without esophagitis (4) HTN (hypertension) ICD Codes: I10 - Essential (primary) hypertension Assessment and Plan 10/19/17 AFIB RVR: Cardiology consulted. On diltiazem drip. HR in the 120- 130's patient is resting comfortable. On warfarin but is on hold with INR of 5, Will order INR for AM. Urinary retention: Patient unable to void. Bladder is distended. Order for leigh placement and flomax added. Parkinson; Home medication resumed GERD: Asymptomatic continue PPI 10/20/17 AFIB RVR: Cardiology consulted and managing. HR was well controlled during the day yesterday but last night elevated. diltiazem drip is off and oral has been started. INR 2.1 today. Warfarin resumed Urinary retention: Plan to remove in AM. flomax started. 10/23/17 AFIB RVR: Rate is controlled on coreg, diltazem, and digoxin. Diltazem was held yesterday secondary to hypotension with SBP in 80's and 90's. Coreg has been decreased over the weekend. He is asymptomatic. Will have cardiology come back to see patient. Anticipate discharge tomorrow with [facility]. INR is pending today. Labs are pending today. I and the VIDEO TAPE TRANSFERRER have both examined this patient and reviewed this note and I agree with these findings and plan of care. Nvaarro Jewell DO Discussed Condition With Nursing Discharge Planning Home with [facility] Tiarra Marin Oct 23, 2017 10:24
[2017-10-23 10:35] LABS: MEAN CELL VOLUME 100.5 FL (80.0-100.0); MEAN CORPUSCULAR HEMOGLOBIN 34.7 PG (27.0-34.0); MEAN CORPUSCULAR HGB CONC 34.6 % (32.0-36.0); PLATELET COUNT 152 TH/MM3 (150-450); RED BLOOD COUNT 3.98 MIL/MM3 (4.50-5.90); RED CELL DISTRIBUTION WIDTH 14.6 % (11.6-17.2); REVIEW FLAG FINAL; WHITE BLOOD COUNT 8.1 TH/MM3 (4.0-11.0)
[2017-10-23 10:43] LABS: INTERNATIONAL NORMALIZED RATIO 2.2 RATIO; PROTHROMBIN TIME - PATIENT 22.2 SEC (9.8-11.6)
[2017-10-23 11:06] LABS: BICARBONATE 32.5 MEQ/L (21.0-32.0); POTASSIUM 4.2 MEQ/L (3.5-5.1)
[2017-10-23] MEDS: WARFARIN SOD 5 MG TAB PO SCH (17:42)
[2017-10-24] VITALS: BP 131/68; PULSE 78; PULSE 84; RESP 16; TEMP 97.7; O2SAT 99
[2017-10-24 03:32] VITALS: PULSE 89
[2017-10-24 04:00] VITALS: BP 111/59; PULSE 83; RESP 16; TEMP 97.5; O2SAT 95
[2017-10-24] MEDS: SODIUM CHLORIDE 0.9% FLUSH 10 ML FLUSH IV FLUSH SCH (07:59)
[2017-10-24 08:00] VITALS: BP 124/58; PULSE 57; RESP 20; TEMP 97; O2SAT 97
[2017-10-24] MEDS: DIGOXIN 0.25 MG TAB PO SCH (09:00)
[2017-10-24] MEDS: DILTIAZEM-CD 120 MG CAP ER PO SCH (09:00)
[2017-10-24] MEDS: CARVEDILOL 12.5 MG TAB PO SCH (09:00)
[2017-10-24] MEDS: CHOLECALCIFEROL (VIT D3) 1000 UNIT TAB PO SCH (09:29)
[2017-10-24] MEDS: oxyCODONE HCL 20 MG CONTROLLED RELEASE TAB PO SCH (09:29)
[2017-10-24] MEDS: ASCORBIC ACID 500 MG TAB PO SCH (09:29)
[2017-10-24] MEDS: TAMSULOSIN HCL 0.4 MG CAP PO SCH (09:29)
[2017-10-24] MEDS: CYANOCOBALAMIN 1,000 MCG TAB PO SCH (09:29)
[2017-10-24] MEDS: MULTIVITAMIN TAB PO SCH (09:30)
[2017-10-24] MEDS: CARBIDOPA/LEVODOPA 25 MG/100 MG TAB PO SCH ×3 (09:30→17:21)
[2017-10-24] MEDS: GABAPENTIN 300 MG CAP PO SCH ×3 (09:30→17:21)
[2017-10-24] MEDS: DOCUSATE SODIUM 50 MG/SENNA 8.6 MG TAB PO SCH (09:30)
[2017-10-24] MEDS ORDERED: DIGO0.25 PO (11:58)
[2017-10-24] MEDS ORDERED: TAMS5CAP PO (11:58)
[2017-10-24] MEDS ORDERED: DILT120C50 PO (11:58)
[2017-10-24] MEDS ORDERED: CARV12.5 PO (11:58)
[2017-10-24 12:00] VITALS: BP 107/58; PULSE 66; RESP 18; TEMP 97.3; O2SAT 96
--- NOTE | 2017-10-24 12:04 | HHI.DS ---
Discharge Summary Admission Date Oct 19, 2017 at 00:12 Discharge Date: Oct 24, 2017 Admitting Diagnosis A. trey with RVR (1) Atrial fibrillation with RVR ICD Codes: I48.91 - Unspecified atrial fibrillation Status: Resolved (2) HTN (hypertension) ICD Codes: I10 - Essential (primary) hypertension (3) GERD (gastroesophageal reflux disease) ICD Codes: K21.9 - Gastro-esophageal reflux disease without esophagitis (4) Hyperlipidemia ICD Codes: E78.5 - Hyperlipidemia, unspecified Brief History Patient is a 82-year-old male was referred to the emergency room department for tachycardia found by home health nurse. Mr. Weir has a history of atrial fibrillation and is status post multiple ablations. He has a history of cardiomyopathy which has subsequently resolved and Biotronik ICD. Has past medical history of HTN, sleep apnea, parkinsons, GERD, and HLD CBC/BMP: 10/23/17 1010 10/23/17 1010 Significant Findings Laboratory Tests Test 10/23/17 10:10 Red Blood Count 3.98 MIL/MM3 (4.50-5.90) Mean Corpuscular Volume 100.5 FL (80.0-100.0) Mean Corpuscular Hemoglobin 34.7 PG (27.0-34.0) Prothrombin Time 22.2 SEC (9.8-11.6) Blood Urea Nitrogen 19 MG/DL (7-18) Random Glucose 112 MG/DL (74-106) Carbon Dioxide Level 32.5 MEQ/L (21.0-32.0) Estimat Glomerular Filtration Rate 84 ML/MIN (>89) PE at Discharge GENERAL: alert and cooperative SKIN: Warm and dry. HEAD: Normocephalic. EYES: No scleral icterus. No injection or drainage. NECK: Supple, trachea midline. No JVD or lymphadenopathy. CARDIOVASCULAR: Regular rate and rhythm without murmurs, gallops, or rubs. RESPIRATORY: Breath sounds equal bilaterally. No accessory muscle use. GASTROINTESTINAL: Abdomen soft, non-tender, nondistended. MUSCULOSKELETAL: No cyanosis, or edema. BACK: Nontender without obvious deformity. No CVA tenderness. Hospital Course Patient is a 82-year-old male was referred to the emergency room department for tachycardia found by home health nurse. Mr. Weir has a history of atrial fibrillation and is status post multiple ablations. He has a history of cardiomyopathy which has subsequently resolved and Biotronik ICD. Has past medical history of HTN, sleep apnea, parkinsons, GERD, and HLD. Patient was followed by cardiology during his stay. He was initially on a Cardizem gtt which was then changed to oral. Coreg was decreased to 12.5 BID secondary to hypotension. Also had urinary retention and initially had Abrams catheter but has been discontinued and is now on Flomax. In spite of the fact that patient can ambulate fair distance he does periodically decompensate with Heart rate and blood pressure needing high level of care and telemetry. Heart rate last night was between 90 to 120 on monitor. Plan is for discharge to [facility] for rehab and to be monitored carefully. Pt Condition on Discharge: Fair Discharge Disposition: Rehab Inpatient Discharge Instructions DIET: Follow Instructions for: As Tolerated, No Restrictions Activities you can perform: Regular-No Restrictions Follow up Referrals: Appointment for Follow Up @ Cardiology PCP Follow-up @ [facility] Will be followed by Dr. Jewell at [facility] New Medications: Carvedilol (Coreg) 12.5 Mg Tab 12.5 MG PO BID for Blood Pressure Management for 30 Days, #60 TAB Digoxin (Digoxin) 0.25 Mg Tab 0.25 MG PO DAILY for Blood Pressure Management for 30 Days, #30 TAB Diltiazem CD 24 HR (Diltiazem CD 24 HR) 120 Mg Caper 120 MG PO DAILY for Blood Pressure Management for 30 Days, #30 CAP Tamsulosin (Flomax) 0.4 Mg Cap 0.4 MG PO DAILY for Urinary Symptom Managemen for 30 Days, #30 CAP Continued Medications: Ascorbic Acid (Vitamin C) 500 Mg Tab 1000 MG PO DAILY B-Complex W/ Folic Acid (B Complex) Tab 1 CAP PO DAILY Carbidopa-Levodopa (Sinemet 25/100) 25 Mg/100 Mg Tab 2 TAB PO TID, 0 Refills Cholecalciferol (Vitamin D-3) 2 000 Tab 2000 UNIT PO DAILY Cyanocobalamin (Vitamin B 12) 250 Mcg Laly 2500 MCG OR DAILY Gabapentin (Neurontin) 600 Mg Tab 600 MG PO TID Multiple Vitamin (Multivitamin) 1 Tab Tab 1 TAB PO DAILY, 0 Refills [place]-3 Fatty Acids (Fish Oil) 1,000 Mg Cap 1400 MG PO DAILY Oxycodone (Oxycodone) 15 Mg Tab 15 MG PO PRN FOR BREAK THROUGH PAIN Oxycodone ER (OxyCONTIN ER) 15 Mg Tab 20 MG PO BID Warfarin Sod (Warfarin Sodium) 5 Mg Tab 5.5 MG PO MON,MON,MON, TAB Warfarin Sodium (Coumadin 5 mg) 5 Mg Tab 5 MG PO MON,MON, SAT Discontinued Medications: Carvedilol 6.25 mg (Coreg 6.25 mg) 6.25 Mg Tab 25 MG PO BID Tiarra Marin Oct 24, 2017 12:04
[2017-10-24] MEDS: WARFARIN SOD 5 MG TAB PO SCH (15:21)
== END 2017-10-24 17:30 | DRG 310 ==
LOC: NEPE 18:40 → NEDA 22:08 → OBSVTOIN 10-19 00:12 → HIME 10-19 01:45 → N04B 10-20 17:04
PROVIDERS: ADMIT Family Medicine; ATTEND Family Medicine
PROC: 0T9B70Z Drainage of Bladder with Drainage Device, Via Natural or Artificial Opening (ICD-10-PCS; principal; 2017-10-19)
DX: I48.91 Unspecified atrial fibrillation (principal); I11.0 Hypertensive heart disease with heart failure; G20 Parkinson's disease; I50.9 Heart failure, unspecified; I25.10 Atherosclerotic heart disease of native coronary artery without angina pectoris; E78.5 Hyperlipidemia, unspecified; K21.9 Gastro-esophageal reflux disease without esophagitis; Z79.01 Long term (current) use of anticoagulants; Z95.810 Presence of automatic (implantable) cardiac defibrillator; G47.30 Sleep apnea, unspecified; M48.00 Spinal stenosis, site unspecified; G25.81 Restless legs syndrome; G62.9 Polyneuropathy, unspecified; Z99.81 Dependence on supplemental oxygen; E03.9 Hypothyroidism, unspecified; Z87.891 Personal history of nicotine dependence; R33.9 Retention of urine, unspecified
CPT/HCPCS: 71010; 80048; 80053; 80162; 82550; 83880; 84443; 84484; 85025; 85027; 85610; 85730; 87086; 87641; 93005; J1160; J7030